=== PATIENT | male | born 1930 | race Two or more races ===

== ENCOUNTER 2017-03-01 17:54 | Inpatient (IN) | payer OTHER ==
[2017-03-01 18:06] VITALS: BMI 29.8
[2017-03-01] MEDS ORDERED: ACETAMINOPHEN 1000 MG/100 ML VIAL (NON FORMULARY) IVPB ONE (18:12)
[2017-03-01] MEDS ORDERED: ACETAMINOPHEN INJECTION 100 ML IVPB ONE (18:23)
[2017-03-01] MEDS ORDERED: LEVOFLOXACIN 750 MG IVPB 150 ML IVPB ONE ×2 (18:29→18:56)
--- NOTE | 2017-03-01 18:39 | PDOC ---
History of Present Illness <Antonio Lucia - Last Filed: 03/01/17 18:38> - General History Source: Patient Exam Limitations: No Limitations - History of Present Illness Initial Comments: 03/01/17 18:39 The patient is an 87 year old female, with significant past medical history of urinary retention, BPH, Afib, hypertension, and hyperlipidemia, who presents today complaining of 2 days of fever, pelvic pain, urinary retention, and dysuria. The patient states that he is unable to urinate over the past 2 days and when he does it is painful. The patient and the home health aid, who accompanied him to the emergency room, are poor historians. They report that these symptoms have occurred over the past 6 years and he has gotten catheterized previously. The patients fever today was 100.3 degrees. Denies hematuria. Denies chest pain, SOB, cough. Denies abdominal pain. Denies chills, nausea, vomiting. Allergies: none reported <Madisyn Bang - Last Filed: 03/01/17 18:39> <Tad Grant - Last Filed: 03/02/17 03:16> <Christina Negron - Last Filed: 03/02/17 04:15> - General Chief Complaint: SIRS, Suspected/Possible Stated Complaint: FEVER Time Seen by Provider: 03/01/17 18:10 Past History - Past Medical History Cardiac Disorders: Yes (atrial fibrillation) Diabetes: Yes HTN: Yes Hypercholesterolemia: Yes - Surgical History Neurologic Surgery: Yes - Psycho/Social/Smoking Cessation Hx Anxiety: No Suicidal Ideation: No Smoking Status: No Smoking History: Never smoked Have you smoked in the past 12 months: No Number of Cigarettes Smoked Daily: 0 Information on smoking cessation initiated: No Hx Alcohol Use: No Drug/Substance Use Hx: No Substance Use Type: None <Antonio Lucia - Last Filed: 03/01/17 18:38> <Madisyn Bang - Last Filed: 03/01/17 18:39> <Tad Grant - Last Filed: 03/02/17 03:16> <Christina Negron - Last Filed: 03/02/17 04:15> - Past Medical History Allergies/Adverse Reactions: Allergies Allergy/AdvReac Type Severity Reaction Status Date / Time No Known Allergies Allergy Verified 03/01/17 18:00 Home Medications: Ambulatory Orders Apixaban [Eliquis] 2.5 mg PO DAILY 03/01/17 Digoxin [Lanoxin -] 0.125 mg PO Q48H 03/01/17 Metformin HCl 500 mg PO DAILY 03/01/17 Metoprolol Tartrate 50 mg PO DAILY 03/01/17 Rosuvastatin [Crestor -] 10 mg PO DAILY 03/01/17 Review of Systems - Review of Systems Able to Perform ROS?: Yes Comments:: 03/01/17 18:40 GENERAL/CONSTITUTIONAL: +fever. No chills. No weakness. HEAD, EYES, EARS, NOSE AND THROAT: No change in vision. No ear pain or discharge. No sore throat. CARDIOVASCULAR: No chest pain or shortness of breath. RESPIRATORY: No cough, wheezing, or hemoptysis. GASTROINTESTINAL: No nausea, vomiting, diarrhea or constipation. GENITOURINARY: +dysuria, retention, pelvic pain. MUSCULOSKELETAL: No joint or muscle swelling or pain. No neck or back pain. SKIN: No rash NEUROLOGIC: No headache, vertigo, loss of consciousness, or change in strength/ sensation. ENDOCRINE: No increased thirst. No abnormal weight change. HEMATOLOGIC/LYMPHATIC: No anemia, easy bleeding, or history of blood clots. ALLERGIC/IMMUNOLOGIC: No hives or skin allergy. <Madisyn Bang - Last Filed: 03/01/17 18:39> *Physical Exam - Vital Signs Last Vital Signs Temp Pulse Resp BP Pulse Ox 100.3 F H 143 H 20 127/80 99 03/01/17 18:01 03/01/17 18:01 03/01/17 18:01 03/01/17 18:01 03/01/17 18:01 <Antonio Lucia - Last Filed: 03/01/17 18:38> - Vital Signs Last Vital Signs Temp Pulse Resp BP Pulse Ox 100.3 F H 143 H 20 127/80 99 03/01/17 18:01 03/01/17 18:01 03/01/17 18:01 03/01/17 18:01 03/01/17 18:01 - Physical Exam Comments: 03/01/17 18:40 GENERAL: Awake, alert, and fully oriented, in no acute distress. +fever HEAD: No signs of trauma EYES: PERRLA, EOMI, sclera anicteric, conjunctiva clear ENT: Auricles normal inspection, hearing grossly normal, nares patent, oropharynx clear without exudates. Moist mucosa NECK: Normal ROM, supple, no lymphadenopathy, JVD, or masses LUNGS: Breath sounds equal, clear to auscultation bilaterally. No wheezes, and no crackles HEART: +irregularly irregular rate and rhythm, normal S1 and S2, no murmurs, rubs or gallops ABDOMEN: +suprapubic tenderness. Soft, normoactive bowel sounds. No guarding, no rebound. No masses EXTREMITIES: Normal range of motion, no edema. No clubbing or cyanosis. No cords , erythema, or tenderness NEUROLOGICAL: Cranial nerves II through XII grossly intact. Normal speech, normal gait SKIN: Warm, Dry, normal turgor, no rashes or lesions noted. <Madisyn Bang - Last Filed: 03/01/17 18:39> - Vital Signs Last Vital Signs Temp Pulse Resp BP Pulse Ox 99.7 F H 119 H 16 120/76 100 03/01/17 20:11 03/01/17 23:21 03/01/17 23:21 03/01/17 23:21 03/01/17 23:21 <Tad Grant - Last Filed: 03/02/17 03:16> - Vital Signs Last Vital Signs Temp Pulse Resp BP Pulse Ox 99.7 F H 116 H 22 119/82 98 03/01/17 20:11 03/01/17 20:39 03/01/17 20:39 03/01/17 20:39 03/01/17 20:50 <Christina Negron - Last Filed: 03/02/17 04:15> ED Treatment Course - RADIOLOGY Radiology Studies Ordered: Category Date Time Status CHEST X-RAY PORTABLE* [RAD] Stat Radiology 03/01/17 18:11 Ordered - Medications Given in the ED: ED Medications Discontinued Medications Generic Name Dose Route Start Last Admin Trade Name Freq PRN Reason Stop Dose Admin Acetaminophen 1,000 mg 03/01/17 18:12 03/01/17 18:31 Ofirmev Injection - IVPB 03/01/17 18:13 1,000 mg ONCE ONE Administration <Antonio Lucia - Last Filed: 03/01/17 18:38> - Medications Given in the ED: ED Medications Discontinued Medications Generic Name Dose Route Start Last Admin Trade Name [place] PRN Reason Stop Dose Admin Acetaminophen 1,000 mg 03/01/17 18:12 03/01/17 18:31 Ofirmev Injection - IVPB 03/01/17 18:13 1,000 mg ONCE ONE Administration <Madisyn Bang - Last Filed: 03/01/17 18:39> - LABORATORY CBC & Chemistry Diagram: 03/01/17 18:25 03/01/17 18:25 - ADDITIONAL ORDERS Additional order review: Laboratory Results 03/01/17 03/01/17 03/01/17 18:40 18:35 18:25 INR PTT (Actin FS) VBG pH 7.36 POC VBG pCO2 44.8 POC VBG pO2 31.6 Mixed VBG HCO3 24.7 Sodium 135 L Potassium 4.5 Chloride 99 Carbon Dioxide 26 Anion Gap 10 BUN 24 H D Creatinine 1.8 H D Creat Clearance w eGFR 36.04 Random Glucose 146 H D Lactic Acid Calcium 8.8 Total Bilirubin 1.1 H D AST 45 H D ALT 47 D Alkaline Phosphatase 487 H D Creatine Kinase 93 Troponin I < 0.02 Total Protein 6.8 Albumin 2.6 L D Urine Color Yellow Urine Appearance Slcloudy Urine pH 5.0 Ur Specific [place] 1.015 Urine Protein 2+ H Urine Glucose (UA) 1+ H Urine Ketones Negative Urine Blood 1+ H Urine Nitrite Negative Urine Bilirubin Negative Urine Urobilinogen 4.0 e.u/dl Ur Leukocyte Esterase Negative Urine RBC 1 Urine WBC 1 Urine Mucus Rare Blood Type Antibody Screen 03/01/17 03/01/17 03/01/17 18:25 18:23 18:21 INR 1.19 H PTT (Actin FS) 35.7 H VBG pH POC VBG pCO2 POC VBG pO2 Mixed VBG HCO3 Sodium Potassium Chloride Carbon Dioxide Anion Gap BUN Creatinine Creat Clearance w eGFR Random Glucose Lactic Acid 1.7 Calcium Total Bilirubin AST ALT Alkaline Phosphatase Creatine Kinase Troponin I Total Protein Albumin Urine Color Urine Appearance Urine pH Ur Specific [place] Urine Protein Urine Glucose (UA) Urine Ketones Urine Blood Urine Nitrite Urine Bilirubin Urine Urobilinogen Ur Leukocyte Esterase Urine RBC Urine WBC Urine Mucus Blood Type O POSITIVE Antibody Screen Negative 03/01/17 18:25 RBC 4.18 D MCV 88.5 MCHC 31.4 L RDW 16.6 H MPV 9.0 Neutrophils % 79.3 Lymphocytes % 11.5 Monocytes % 8.6 Eosinophils % 0.2 Basophils % 0.4 - RADIOLOGY Radiograph Interpretation: 03/02/17 03:17 EXAM: CT abdomen and pelvis without contrast IMAGES: [id number] INDICATION: Lower abdominal pain. Rule out appendicitis DATE OF SERVICE: 2017-03-02 02:05:10.0 COMPARISON: none FINDINGS: Lung bases are clear. The visualized cardiac chambers are normal size and configuration. Normal unenhanced liver, gallbladder , pancreas, spleen, adrenal glands and kidneys. The stomach and abdominal small and large bowel are normal. There is no aortic aneurysm. There is a moderate degree of inflammatory retroperitoneal lymphadenopathy. Neoplasm, such as lymphoma or metastases must be considered. There is a moderate size left inguinal hernia containing portion of bladder without bladder inflammation. The pelvic small and large bowel are normal. There is no evidence of appendicitis, although the appendix is not clearly visualized. The prostate gland is mildly enlarged. No pelvic free fluid is identified. There is no significant pelvic lymphadenopathy. No multiple sclerotic bone lesions, highly suspicious for metastases, possibly prostate cancer. There are no fractures. IMPRESSION: Moderate degree of inflammatory retroperitoneal adenopathy may be neoplastic in nature, possibly metastatic prostate cancer or lymphoma. Multiple blastic bone metastases. Moderate-sized left inguinal hernia containing a portion of bladder. Mild prostate enlargement. THIS DOCUMENT HAS BEEN ELECTRONICALLY SIGNED Arturo Briseno MD 03/02/2017 02:39 EST - Medications Given in the ED: ED Medications Discontinued Medications Generic Name Dose Route Start Last Admin Trade Name Freq PRN Reason Stop Dose Admin Acetaminophen 1,000 mg 03/01/17 18:12 03/01/17 18:31 Ofirmev Injection - IVPB 03/01/17 18:13 1,000 mg ONCE ONE Administration Levofloxacin 150 mls @ 100 mls/hr 03/01/17 18:29 03/01/17 19:00 Levaquin 750 Mg Premixed Ivpb - IVPB 03/01/17 19:58 100 mls/hr ONCE ONE Administration Sodium Chloride 500 mls @ 500 mls/hr 03/01/17 18:41 03/01/17 18:48 Normal Saline - IV 03/01/17 19:40 500 mls/hr ASDIR STA Administration Metoprolol Tartrate 5 mg 03/01/17 20:10 03/01/17 20:19 Lopressor Injection - IVPUSH 03/01/17 20:11 5 mg ONCE ONE Administration Sodium Chloride 500 ml 03/01/17 20:00 03/01/17 20:01 Normal Saline - IV 03/01/17 20:01 500 ml ONCE ONE Administration <Tad Grant - Last Filed: 03/02/17 03:16> - LABORATORY CBC & Chemistry Diagram: 03/01/17 18:25 03/01/17 18:25 - ADDITIONAL ORDERS Additional order review: Laboratory Results 03/01/17 03/01/17 03/01/17 18:40 18:35 18:25 INR PTT (Actin FS) VBG pH 7.36 POC VBG pCO2 44.8 POC VBG pO2 31.6 Mixed VBG HCO3 24.7 Sodium 135 L Potassium 4.5 Chloride 99 Carbon Dioxide 26 Anion Gap 10 BUN 24 H D Creatinine 1.8 H D Creat Clearance w eGFR 36.04 Random Glucose 146 H D Lactic Acid Calcium 8.8 Total Bilirubin 1.1 H D AST 45 H D ALT 47 D Alkaline Phosphatase 487 H D Creatine Kinase 93 Troponin I < 0.02 Total Protein 6.8 Albumin 2.6 L D Urine Color Yellow Urine Appearance Slcloudy Urine pH 5.0 Urine Protein 2+ H Urine Glucose (UA) 1+ H Urine Ketones Negative Urine Blood 1+ H Urine Nitrite Negative Urine Bilirubin Negative Urine Urobilinogen 4.0 e.u/dl Ur Leukocyte Esterase Negative Urine RBC 1 Urine WBC 1 Urine Mucus Rare Blood Type Antibody Screen 03/01/17 03/01/17 03/01/17 18:25 18:23 18:21 INR 1.19 H PTT (Actin FS) 35.7 H VBG pH POC VBG pCO2 POC VBG pO2 Mixed VBG HCO3 Sodium Potassium Chloride Carbon Dioxide Anion Gap BUN Creatinine Creat Clearance w eGFR Random Glucose Lactic Acid 1.7 Calcium Total Bilirubin AST ALT Alkaline Phosphatase Creatine Kinase Troponin I Total Protein Albumin Urine Color Urine Appearance Urine pH Urine Protein Urine Glucose (UA) Urine Ketones Urine Blood Urine Nitrite Urine Bilirubin Urine Urobilinogen Ur Leukocyte Esterase Urine RBC Urine WBC Urine Mucus Blood Type O POSITIVE Antibody Screen Negative 03/01/17 18:25 RBC 4.18 D MCV 88.5 MCHC 31.4 L RDW 16.6 H MPV 9.0 Neutrophils % 79.3 Lymphocytes % 11.5 Monocytes % 8.6 Eosinophils % 0.2 Basophils % 0.4 - RADIOLOGY Radiology Studies Ordered: Category Date Time Status ABDOMEN & PELVIS CT W/O CONTR [CT] Stat CT Scan 03/01/17 21:31 Ordered - Medications Given in the ED: ED Medications Discontinued Medications Generic Name Dose Route Start Last Admin Trade Name Merced PRN Reason Stop Dose Admin Acetaminophen 1,000 mg 03/01/17 18:12 03/01/17 18:31 Ofirmev Injection - IVPB 03/01/17 18:13 1,000 mg ONCE ONE Administration Levofloxacin 150 mls @ 100 mls/hr 03/01/17 18:29 03/01/17 19:00 Levaquin 750 Mg Premixed Ivpb - IVPB 03/01/17 19:58 100 mls/hr ONCE ONE Administration Sodium Chloride 500 mls @ 500 mls/hr 03/01/17 18:41 03/01/17 18:48 Normal Saline - IV 03/01/17 19:40 500 mls/hr ASDIR STA Administration Metoprolol Tartrate 5 mg 03/01/17 20:10 03/01/17 20:19 Lopressor Injection - IVPUSH 03/01/17 20:11 5 mg ONCE ONE Administration Sodium Chloride 500 ml 03/01/17 20:00 03/01/17 20:01 Normal Saline - IV 03/01/17 20:01 500 ml ONCE ONE Administration <Christina Negorn - Last Filed: 03/02/17 04:15> Medical Decision Making - Medical Decision Making 03/01/17 21:33 assumed care of pt at 7 pm. brifely 87 yo male with ho untreated prostate CA ( diagnosed 5 yrs ago)here with fever today. no cough no sob. c/o lower abd pain. has difficulty emptying bladder due to enlarged prostate, and prostate ca. pt reassessed. has been given tylenol, ivf 1 L total. HR still elevated 140's. given iv metoprolol 5 mg . hr improved to 117. lungs clear heart tachy irregular. abd with mild suprapubic ttp. plan : given iv abx for presumed UTI. urine mildly positive , will ct r/o other causes of pain and fever such as diverticulitis, appendicit. no iv contrast as creatinine 1.8. will admit for iv abx, afib with RVR. alla pt pcp dr. [place], oncologist Dr Grubbs, urologist Dr Cummings. magali Tomlinson cell phone [phone] <Christina Negron - Last Filed: 03/02/17 04:15> *DC/Admit/Observation/Transfer - Attestations Physician Attestion: 03/01/17 18:38 I, Dr. Antonio Lucia, attest that this document has been prepared under my direction and personally reviewed by me in its entirety. I further attest, that it accurately reflects all work, treatment, procedures and medical decision -making performed by me. <Antonio Lucia - Last Filed: 03/01/17 18:38> - Attestations Scribe Attestion: 03/01/17 18:40 Documentation prepared by KUNAL Archer, acting as medical surgery nurse for Antonio Lucia DO. <Madisyn Bang - Last Filed: 03/01/17 18:39> <Tad Grant - Last Filed: 03/02/17 03:16> - Discharge Dispostion Admit: Yes <Christina Negron - Last Filed: 03/02/17 04:15> Diagnosis at time of Disposition: Urinary tract infection, Atrial fibrillation with rapid ventricular response - Referrals Referrals: STAFF,NOT ON [Primary Care Provider] -
[2017-03-01] MEDS ORDERED: SODIUM CHLORIDE 500 ML IV STA (18:41)
[2017-03-01 18:46] LABS: VENOUS PH 7.36 (7.32-7.42)
[2017-03-01 18:47] LABS: VENOUS BLOOD GAS HCO3 24.7 meq/L (19-25)
[2017-03-01 18:47] LABS: BASOPHIL 0.4 % (0-2.0); EOSINOPHIL 0.2 % (0-4.5); MCH 27.8 pg (25.7-33.7); MCHC 31.4 g/dl (32.0-35.9); MEAN CELL VOLUME 88.5 fl (80-96); NEUTROPHILS 79.3 % (42.8-82.8); PLATELET COUNT 305 K/MM3 (134-434); RDW 16.6 % (11.9-15.9); WHITE BLOOD COUNT 11.7 K/mm3 (4.0-10.0)
[2017-03-01 19:10] LABS: ALBUMIN 2.6 g/dl (3.4-5.0); ANION GAP 10 (8-16); CALCIUM 8.8 mg/dL (8.5-10.1); CO2 26 mmol/L (21-32); CREATININE 1.8 mg/dL (0.7-1.3); GLUCOSE,RANDOM 146 mg/dL (74-106); SGOT/AST 45 U/L (15-37)
[2017-03-01 19:13] LABS: ALK PHOS 487 U/L (45-117); BILIRUBIN,TOTAL 1.1 mg/dL (0.2-1.0); SGPT/ALT 47 U/L (12-78); TOT PROT 6.8 g/dl (6.4-8.2); TROPONIN I < 0.02 ng/ml (0.00-0.05)
[2017-03-01 19:16] LABS: URINE APPEARANCE SLCLOUDY; URINE BILIRUBIN NEGATIVE (NEGATIVE); URINE COLOR YELLOW; URINE GLUCOSE (UA) 1+ (NEGATIVE); URINE KETONE NEGATIVE (NEGATIVE); URINE LEUK ESTERASE NEGATIVE (NEGATIVE); URINE NITRITE NEGATIVE (NEGATIVE); URINE UROBILINOGEN 4.0 E.U/dl E.U./dl (0.2-1.0)
[2017-03-01 19:22] LABS: INR 1.19 (0.82-1.09); PROTHROMBIN TIME (PATIENT) 13.1 SEC (9.98-11.88)
[2017-03-01 19:24] LABS: ACTIVATED PTT 35.7 SECONDS (26.9-34.4)
[2017-03-01] MEDS ORDERED: SODIUM CHLORIDE 0.9% 1000 ML INFUS.BAG IV ONE (20:00)
[2017-03-01 20:05] LABS: URINE BLOOD 1+ (NEGATIVE); URINE PROTEIN 2+ (NEGATIVE)
[2017-03-01] MEDS ORDERED: METOPROLOL TARTRATE 5 MG/5 ML VIAL IVPUSH ONE (20:10)
[2017-03-01] MEDS ORDERED: METOPROLOL TARTRATE 5 MG/5 ML VIAL ONE (20:14)
[2017-03-01 20:29] LABS: URINE MUCUS RARE; URINE RBC 1 /hpf (0-3); URINE WBC 1 /hpf (3-5)
[2017-03-02] MEDS ORDERED: METOPROLOL TARTRATE 5 MG/5 ML VIAL IVPUSH ONE ×4 (03:59→22:10)
[2017-03-02] MEDS ORDERED: METOPROLOL TARTRATE 5 MG/5 ML VIAL ONE ×4 (04:02→22:07)
--- NOTE | 2017-03-02 05:03 | HP ---
CHIEF COMPLAINT: Fever, Pelvic Pain PCP: Dr. Cuba Oncologist: Dr. Grubbs Urologist: Dr. Cummings Spouse: Bushra [phone] (cell) HISTORY OF PRESENT ILLNESS: This is a 87 y/o male with a past medical history of Urinary Retention, BPH, Untreated Prostate Ca (diagnosed 5 yrs ago), HTN, HLD, DM. Who presents to the ED with fever, pelvic pain x 2 days. Patient is [place] and a poor historian, limited HPI. Patient denies cough, chills, dizziness, CP, N/V/D, constipation, melena, hematochezia, hematuria. ER course was notable for: (1) EKG- Afib RVR 152, Metoprolol IV x2 given rate now 110s-120's (2) T Max 100.3 (3) Bun 24, Cr 1.8 (4) UA- Cloudy, + 1 blood, +2 protein, +1 glucose Recent Travel: None PAST MEDICAL HISTORY: See HPI PAST SURGICAL HISTORY: Cystoscopy Social History: Smoking: Never Alcohol: None Drugs: None Family History: Allergies No Known Allergies Allergy (Verified 03/01/17 18:00) HOME MEDICATIONS: Home Medications Medication Instructions Recorded Apixaban [Eliquis] 2.5 mg PO DAILY 03/01/17 Digoxin [Lanoxin -] 0.125 mg PO Q48H 03/01/17 Metformin HCl 500 mg PO DAILY 03/01/17 Metoprolol Tartrate 50 mg PO DAILY 03/01/17 Rosuvastatin [Crestor -] 10 mg PO DAILY 03/01/17 REVIEW OF SYSTEMS CONSTITUTIONAL: Absent: fever, chills, diaphoresis, generalized weakness, malaise, loss of appetite, weight change HEENT: Absent: rhinorrhea, nasal congestion, throat pain, throat swelling, difficulty swallowing, mouth swelling, ear pain, eye pain, visual changes CARDIOVASCULAR: palpitations, irregular heart rate, Absent: chest pain, syncope, lightheadedness, peripheral edema RESPIRATORY: Absent: cough, shortness of breath, dyspnea with exertion, orthopnea, wheezing, stridor, hemoptysis GASTROINTESTINAL: abdominal pain Absent: abdominal distension, nausea, vomiting, diarrhea, constipation, melena, hematochezia GENITOURINARY: Absent: dysuria, frequency, urgency, hesitancy, hematuria, flank pain, genital pain MUSCULOSKELETAL: Absent: myalgia, arthralgia, joint swelling, back pain, neck pain SKIN: Absent: rash, itching, pallor HEMATOLOGIC/IMMUNOLOGIC: Absent: easy bleeding, easy bruising, lymphadenopathy, frequent infections ENDOCRINE: Absent: unexplained weight gain, unexplained weight loss, heat intolerance, cold intolerance NEUROLOGIC: Absent: headache, focal weakness or paresthesias, dizziness, unsteady gait, seizure, mental status changes, bladder or bowel incontinence PSYCHIATRIC: Absent: anxiety, depression, suicidal or homicidal ideation, hallucinations. PHYSICAL EXAMINATION Vital Signs - 24 hr 03/02/17 04:32 Temperature 99.7 F H Pulse Rate [ 101 H Apical] Blood Pressure 110/60 [Right Arm] GENERAL: Awake, alert, and fully oriented, in no acute distress. HEAD: Normal with no signs of trauma. EYES: Pupils equal, round and reactive to light, extraocular movements intact, sclera anicteric, conjunctiva clear. No lid lag. EARS, NOSE, THROAT: Ears normal, nares patent, oropharynx clear without exudates. Moist mucous membranes. NECK: Normal range of motion, supple without lymphadenopathy, JVD, or masses. LUNGS: Breath sounds equal, clear to auscultation bilaterally. No wheezes, and no crackles. No accessory muscle use. HEART: Irregular rate and rhythm, normal S1 and S2 without murmur, rub or gallop. ABDOMEN: LLQ tenderness Soft, not distended, normoactive bowel sounds, no guarding, no rebound, no masses. No hepatomegaly or splenomegaly. MUSCULOSKELETAL: Normal range of motion at all joints. No bony deformities or tenderness. No CVA tenderness. UPPER EXTREMITIES: 2+ pulses, warm, well-perfused. No cyanosis. No clubbing. No peripheral edema. LOWER EXTREMITIES: 2+ pulses, warm, well-perfused. No calf tenderness. No peripheral edema. NEUROLOGICAL: Cranial nerves II-XII intact. Normal speech. Gait not observed, ( ambulates with chair/walker). PSYCHIATRIC: Cooperative. Good eye contact. Appropriate mood and affect. SKIN: Warm, dry, normal turgor, no rashes or lesions noted, normal capillary refill. Laboratory Results - last 24 hr 03/01/17 03/01/17 03/01/17 18:21 18:23 18:25 WBC 11.7 H D RBC 4.18 D Hgb 11.6 L D Hct 37.0 D MCV 88.5 MCHC 31.4 L RDW 16.6 H Plt Count 305 D MPV 9.0 Neutrophils % 79.3 Lymphocytes % 11.5 Monocytes % 8.6 Eosinophils % 0.2 Basophils % 0.4 INR PTT (Actin FS) VBG pH POC VBG pCO2 POC VBG pO2 Mixed VBG HCO3 Sodium Potassium Chloride Carbon Dioxide Anion Gap BUN Creatinine Creat Clearance w eGFR Random Glucose Lactic Acid 1.7 Calcium Total Bilirubin AST ALT Alkaline Phosphatase Creatine Kinase Troponin I Total Protein Albumin Urine Color Urine Appearance Urine pH Ur Specific [place] Urine Protein Urine Glucose (UA) Urine Ketones Urine Blood Urine Nitrite Urine Bilirubin Urine Urobilinogen Ur Leukocyte Esterase Urine RBC Urine WBC Urine Mucus Blood Type O POSITIVE Antibody Screen Negative 03/01/17 03/01/17 03/01/17 18:25 18:25 18:35 WBC RBC Hgb Hct MCV MCHC RDW Plt Count MPV Neutrophils % Lymphocytes % Monocytes % Eosinophils % Basophils % INR 1.19 H PTT (Actin FS) 35.7 H VBG pH 7.36 POC VBG pCO2 44.8 POC VBG pO2 31.6 Mixed VBG HCO3 24.7 Sodium 135 L Potassium 4.5 Chloride 99 Carbon Dioxide 26 Anion Gap 10 BUN 24 H D Creatinine 1.8 H D Creat Clearance w eGFR 36.04 Random Glucose 146 H D Lactic Acid Calcium 8.8 Total Bilirubin 1.1 H D AST 45 H D ALT 47 D Alkaline Phosphatase 487 H D Creatine Kinase 93 Troponin I < 0.02 Total Protein 6.8 Albumin 2.6 L D Urine Color Urine Appearance Urine pH Ur Specific [place] Urine Protein Urine Glucose (UA) Urine Ketones Urine Blood Urine Nitrite Urine Bilirubin Urine Urobilinogen Ur Leukocyte Esterase Urine RBC Urine WBC Urine Mucus Blood Type Antibody Screen 03/01/17 18:40 WBC RBC Hgb Hct MCV MCHC RDW Plt Count MPV Neutrophils % Lymphocytes % Monocytes % Eosinophils % Basophils % INR PTT (Actin FS) VBG pH POC VBG pCO2 POC VBG pO2 Mixed VBG HCO3 Sodium Potassium Chloride Carbon Dioxide Anion Gap BUN Creatinine Creat Clearance w eGFR Random Glucose Lactic Acid Calcium Total Bilirubin AST ALT Alkaline Phosphatase Creatine Kinase Troponin I Total Protein Albumin Urine Color Yellow Urine Appearance Slcloudy Urine pH 5.0 Ur Specific [place] 1.015 Urine Protein 2+ H Urine Glucose (UA) 1+ H Urine Ketones Negative Urine Blood 1+ H Urine Nitrite Negative Urine Bilirubin Negative Urine Urobilinogen 4.0 e.u/dl Ur Leukocyte Esterase Negative Urine RBC 1 Urine WBC 1 Urine Mucus Rare Blood Type Antibody Screen RADIOLOGY Radiograph Interpretation: 03/02/17 03:17 EXAM: CT abdomen and pelvis without contrast IMAGES: [id number] INDICATION: Lower abdominal pain. Rule out appendicitis DATE OF SERVICE: 2017-03-02 02:05:10.0 COMPARISON: none FINDINGS: Lung bases are clear. The visualized cardiac chambers are normal size and configuration. Normal unenhanced liver, gallbladder , pancreas, spleen, adrenal glands and kidneys. The stomach and abdominal small and large bowel are normal. There is no aortic aneurysm. There is a moderate degree of inflammatory retroperitoneal lymphadenopathy. Neoplasm, such as lymphoma or metastases must be considered. There is a moderate size left inguinal hernia containing portion of bladder without bladder inflammation. The pelvic small and large bowel are normal. There is no evidence of appendicitis, although the appendix is not clearly visualized. The prostate gland is mildly enlarged. No pelvic free fluid is identified. There is no significant pelvic lymphadenopathy. No multiple sclerotic bone lesions, highly suspicious for metastases, possibly prostate cancer. There are no fractures. IMPRESSION: Moderate degree of inflammatory retroperitoneal adenopathy may be neoplastic in nature, possibly metastatic prostate cancer or lymphoma. Multiple blastic bone metastases. Moderate-sized left inguinal hernia containing a portion of bladder. Mild prostate enlargement. THIS DOCUMENT HAS BEEN ELECTRONICALLY SIGNED Arturo Briseno MD 03/02/2017 02:39 EST ASSESSMENT/PLAN: This is a 87 y/o male with a PMHx of: Urinary Retention, BPH, Untreated Prostate Ca (diagnosed 5 yrs ago), Afib (on Eliquis), HTN, HLD, DM, [place]. Admitted to Telemetry with Afib with RVR, UTI for further evaluation of their emergent condition. Plan: 1. Afib with RVR - hx Afib ?complaint with meds - Tele monitoring - [id number] Score 4 - Appreciate Cardiology Consult - Metoprolol 5mg IV x2 given in ED rate improved 110s-120s - EKG- Afib with RVR, ST & T wave abnormality, consider inferior ischemia - Continue Metoprolol, Eliquis, Digoxin - Digoxin level in am - Serial Enzymes - Echo 2. UTI - UA- cloudy, +1 Blood, +2 Protein, +1 glucose, some WBCs - Urine Culture-pending - Levaquin given in ED - Will start Ceftriaxone - Monitor vitals 3. Pelvic Pain - Likely secondary to UTI vs Prostate Tumor - CTAP- see above - Patient has hx untreated prostate Ca x 5 yrs - f/u with oncologist/urologist upon d/c for further evaluation and management 4. Hypertension - Monitor BP - Continue Metoprolol - Monitor renal function 5. Hyperlipidemia - Continue Crestor - Lipid Panel in am 6. Diabetes Mellitus - BGMs - ISS - Hold Metformin 2/2 renal insufficiency - HgBA1C 7. BPH//Urinary Retention. - stable - Patient denies trouble voiding or decreased urine flow - Currently not on medication - f/u with Urologist upon d/c for continued management 8. FEN - Patient tolerates PO Fluids - Replete lytes prn - Low Na, Diabetic Diet 9. DVT Prophylaxis - OOB - SCDs - Continue Eliquis Code Status: Full Code Dispo: Continue Inpatient Care Problem List - Problem (1) Atrial fibrillation with RVR Code(s): I48.91 - UNSPECIFIED ATRIAL FIBRILLATION (2) UTI (urinary tract infection) Code(s): N39.0 - URINARY TRACT INFECTION, SITE NOT SPECIFIED Visit type - Emergency Visit Emergency Visit: Yes ED Registration Date: 03/02/17 Care time: The patient presented to the Emergency Department on the above date and was hospitalized for further evaluation of their emergent condition. - New Patient This patient is new to me today: Yes Date on this admission: 03/02/17 - Critical Care Critical Care patient: No
[2017-03-02] MEDS ORDERED: ACETAMINOPHEN 325 MG TABLET (FP) PO PRN (06:04)
[2017-03-02] MEDS ORDERED: METOPROLOL SUCCINATE 50 MG TAB.SR.24H (FP) ONE (09:35)
[2017-03-02 09:41] LABS: BASOPHIL 0.8 % (0-2.0); EOSINOPHIL 0.3 % (0-4.5); MCH 28.9 pg (25.7-33.7); MEAN CELL VOLUME 87.7 fl (80-96); MEAN PLT VOLUME 8.5 fl (7.5-11.1); NEUTROPHILS 83.9 % (42.8-82.8); PLATELET COUNT 233 K/MM3 (134-434); RDW 16.2 % (11.9-15.9); WHITE BLOOD COUNT 10.2 K/mm3 (4.0-10.0)
[2017-03-02] MEDS: CEFTRIAXONE 50 ML IVPB SCH (10:00)
[2017-03-02] MEDS: METOPROLOL TARTRATE 50 MG TABLET (FP) PO SCH (10:00)
[2017-03-02 10:06] LABS: ANION GAP 9 (8-16); CALCIUM 8.6 mg/dL (8.5-10.1); CHOLESTEROL 93 mg/dL (50-200); CO2 24 mmol/L (21-32); CREATININE 1.4 mg/dL (0.7-1.3); GLUCOSE,RANDOM 190 mg/dL (74-106); LDL CHOLESTEROL (ONLY SJRH) 54 mg/dL (5-100); MAGNESIUM 2.2 mg/dL (1.8-2.4); PHOSPHOROUS 2.5 mg/dL (2.5-4.9)
[2017-03-02 10:17] LABS: DIGOXIN LEVEL 0.4216 ng/ml (0.8-2.0); TROPONIN I < 0.02 ng/ml (0.00-0.05)
--- NOTE | 2017-03-02 10:21 | PN ---
Physical Exam: SUBJECTIVE: Patient seen and examined in the ER. Pt denies all c/o at present. OBJECTIVE: Vital Signs 3 Period Temp Pulse Resp BP Sys/Ralph Pulse Ox Last 24 Hr 99.0 F-99.7 F 101-125 16-16 110-122/60-82 100-100 GENERAL: The patient is awake, alert, and fully oriented, in no acute distress. + [place] HEAD: Normal with no signs of trauma. EYES: PERRL, extraocular movements intact, sclera anicteric, conjunctiva clear. No ptosis. ENT: Ears normal, nares patent, oropharynx clear without exudates, moist mucous membranes. NECK: Trachea midline, full range of motion, supple. LUNGS: Breath sounds equal, clear to auscultation bilaterally, no wheezes, no crackles, no accessory muscle use. HEART: Regular rate and rhythm, S1, S2 without murmur, rub or gallop. ABDOMEN: Soft, nontender, nondistended, normoactive bowel sounds, no guarding, no rebound, no hepatosplenomegaly, no masses. EXTREMITIES: 2+ pulses, warm, well-perfused, no edema. NEUROLOGICAL: Cranial nerves II through XII grossly intact. Normal speech, gait not observed. PSYCH: Normal mood, normal affect. SKIN: Warm, dry, normal turgor, no rashes or lesions noted Laboratory Results - last 24 hr 3 03/02/17 03/02/17 03/02/17 09:20 09:20 09:20 WBC 10.2 H RBC 3.74 L Hgb 10.8 L Hct 32.8 L MCV 87.7 MCHC 33.0 RDW 16.2 H Plt Count 233 D MPV 8.5 Neutrophils % 83.9 H Lymphocytes % 8.6 D Monocytes % 6.4 Eosinophils % 0.3 Basophils % 0.8 Sodium 137 Potassium 4.7 Chloride 104 Carbon Dioxide 24 Anion Gap 9 BUN 20 H Creatinine 1.4 H D Random Glucose 190 H D Hemoglobin A1c % 8.3 H Calcium 8.6 Phosphorus 2.5 Magnesium 2.2 Creatine Kinase 79 Troponin I < 0.02 Triglycerides 69 Cholesterol 93 Total LDL Cholesterol 54 HDL Cholesterol 34 L Digoxin 0.4216 L Active Medications 3 Generic Name Dose Route Start Last Admin Trade Name Freq PRN Reason Stop Dose Admin Acetaminophen 650 mg 03/02/17 06:04 Tylenol - PO Q6H PRN FEVER OR PAIN Apixaban 2.5 mg 03/02/17 10:00 Eliquis - PO BID [facility] Digoxin 0.125 mg 03/02/17 10:00 Lanoxin - PO Q48H [facility] Ceftriaxone Sodium 50 mls @ 100 mls/hr 03/02/17 10:00 Rocephin 1gm Ivpb (Pre-Docked) IVPB DAILY [facility] Metoprolol Tartrate 50 mg 03/02/17 10:00 Lopressor - PO DAILY [facility] Rosuvastatin Calcium 10 mg 03/02/17 10:00 Crestor - PO DAILY [facility] Radiograph Interpretation: 03/02/17 03:17 EXAM: CT abdomen and pelvis without contrast IMAGES: [id number] INDICATION: Lower abdominal pain. Rule out appendicitis DATE OF SERVICE: 2017-03-02 02:05:10.0 COMPARISON: none FINDINGS: Lung bases are clear. The visualized cardiac chambers are normal size and configuration. Normal unenhanced liver, gallbladder , pancreas, spleen, adrenal glands and kidneys. The stomach and abdominal small and large bowel are normal. There is no aortic aneurysm. There is a moderate degree of inflammatory retroperitoneal lymphadenopathy. Neoplasm, such as lymphoma or metastases must be considered. There is a moderate size left inguinal hernia containing portion of bladder without bladder inflammation. The pelvic small and large bowel are normal. There is no evidence of appendicitis, although the appendix is not clearly visualized. The prostate gland is mildly enlarged. No pelvic free fluid is identified. There is no significant pelvic lymphadenopathy. No multiple sclerotic bone lesions, highly suspicious for metastases, possibly prostate cancer. There are no fractures. IMPRESSION: Moderate degree of inflammatory retroperitoneal adenopathy may be neoplastic in nature, possibly metastatic prostate cancer or lymphoma. Multiple blastic bone metastases. Moderate-sized left inguinal hernia containing a portion of bladder. Mild prostate enlargement. THIS DOCUMENT HAS BEEN ELECTRONICALLY SIGNED Arturo Briseno MD 03/02/2017 02:39 EST ASSESSMENT/PLAN: This is a 87 y/o male with a PMHx of: Urinary Retention, BPH, Untreated Prostate Ca (diagnosed 5 yrs ago), Afib (on Eliquis), HTN, HLD, DM, [place]. Admitted to Telemetry with Afib with RVR, UTI for further evaluation of their emergent condition. Spoke with pt's daughter Bushra Ward ([phone]) who requests that the patient is discharged. Plan: 1. Afib with RVR - Tele monitoring - [id number] Score 4 - Case d/w cardiology [place] - Metoprolol 5mg IV x2 given in ED rate improved 110s-120s - EKG- Afib with RVR, ST & T wave abnormality, consider inferior ischemia - Continue Metoprolol, Eliquis, Digoxin - Lopressor 5mg IVP for breakthrough tachycardia - Digoxin level subtherapeutic - Serial Enzymes - Echo - attempted to contact pt [employer]- Prem in the [place] 2. UTI - UA- cloudy, +1 Blood, +2 Protein, +1 glucose, some WBCs - Urine Cx- pending - Levaquin given in ED - Ceftriaxone 1g daily - Monitor vitals 3. Pelvic Pain- controlled presently - Likely secondary to UTI vs Prostate Tumor - CTAP- see above - f/u with Romie oncologist/urologist upon d/c for further evaluation and management 4. Hypertension - Monitor BP - Continue Metoprolol - Monitor renal function 5. Hyperlipidemia - Continue Crestor - Lipid Panel in am 6. DM - BGMs - ISS - Hold Metformin 2/2 renal insufficiency - HgBA1C 7. BPH/Urinary Retention - stable - Patient denies trouble voiding or decreased urine flow - Currently not on medication - f/u with Urologist upon d/c for continued management 8. FEN - Patient tolerates PO Fluids - Replete lytes prn - Low Na, Diabetic Diet 9. DVT Prophylaxis - OOB - SCDs - Continue Eliquis Code Status: Full Code Dispo: Continue Inpatient Care Visit type - Emergency Visit Emergency Visit: Yes ED Registration Date: 03/02/17 Care time: The patient presented to the Emergency Department on the above date and was hospitalized for further evaluation of their emergent condition. - New Patient This patient is new to me today: Yes Date on this admission: 03/05/17 - Critical Care Critical Care patient: No
[2017-03-02] MEDS ORDERED: DIGOXIN 0.125 MG TABLET (FP) ONE (12:57)
[2017-03-02] MEDS ORDERED: CEFTRIAXONE 50 ML ONE (12:57)
[2017-03-02] MEDS: DIGOXIN 0.125 MG TABLET (FP) PO SCH (13:05)
[2017-03-02 13:29] LABS: TROPONIN I < 0.02 ng/ml (0.00-0.05)
[2017-03-02] MEDS: ROSUVASTATIN CA 10 MG TABLET (FP) PO SCH (15:00)
[2017-03-02] MEDS: APIXABAN 2.5 MG TABLET PO SCH ×2 (15:00→21:17)
[2017-03-03] MEDS ORDERED: METOPROLOL TARTRATE 5 MG/5 ML VIAL ONE (01:04)
[2017-03-03] MEDS ORDERED: METOPROLOL TARTRATE 5 MG/5 ML VIAL IVPUSH ONE (01:06)
[2017-03-03 07:39] LABS: BASOPHIL 0.4 % (0-2.0); EOSINOPHIL 0.5 % (0-4.5); MCH 28.7 pg (25.7-33.7); MCHC 32.8 g/dl (32.0-35.9); MEAN CELL VOLUME 87.6 fl (80-96); MEAN PLT VOLUME 8.6 fl (7.5-11.1); NEUTROPHILS 78.6 % (42.8-82.8); PLATELET COUNT 271 K/MM3 (134-434); RDW 16.3 % (11.9-15.9); WHITE BLOOD COUNT 8.2 K/mm3 (4.0-10.0)
[2017-03-03 08:10] LABS: ANION GAP 11 (8-16); CALCIUM 8.6 mg/dL (8.5-10.1); CO2 25 mmol/L (21-32); CREATININE 1.5 mg/dL (0.7-1.3); GLUCOSE,RANDOM 155 mg/dL (74-106)
[2017-03-03] MEDS: METOPROLOL TARTRATE 50 MG TABLET (FP) PO SCH (08:40)
[2017-03-03] MEDS: APIXABAN 2.5 MG TABLET PO SCH ×2 (08:40→22:25)
[2017-03-03] MEDS: DIGOXIN 0.125 MG TABLET (FP) PO SCH (08:40)
[2017-03-03] MEDS ORDERED: dilTIAZem HCL 50 MG/10 ML - 10 ML VIAL IVPUSH ONE (08:45)
--- NOTE | 2017-03-03 09:23 | CON.CARD ---
Consult Consult Specialty:: cardiology Reason for Consultation:: palpitations; AF - History of Present Illness History of Present Illness: The patient is an 87 year old male (garry C[place]), with significant past medical history of urinary retention, BPH, Afib, hypertension, chronic lower abdominal pain (for at least the past year), anxiety,and hyperlipidemia, who presents today complaining of 2 days of fever, pelvic pain, urinary retention, and dysuria. The patient states that he is unable to urinate over the past 2 days and when he does it is painful. The patient and the home health aid, who accompanied him to the emergency room, are poor historians. They report that these symptoms have occurred over the past 6 years and he has gotten catheterized previously. The patients fever today was 100.3 degrees. Denies hematuria. Denies chest pain, SOB, cough. Denies abdominal pain. Denies chills, nausea, vomiting. Allergies: none reported - History Source History Provided By: Patient, Medical Record Limitations to Obtaining History: Poor Historian - Past Medical History Cardio/Vascular: Yes: AFIB, HTN Pulmonary: No: Asthma Gastrointestinal: Yes: GERD - Alcohol/Substance Use Hx Alcohol Use: No - Smoking History Smoking history: Never smoked Have you smoked in the past 12 months: No Aproximately how many cigarettes per day: 0 Home Medications - Allergies Allergies/Adverse Reactions: Allergies Allergy/AdvReac Type Severity Reaction Status Date / Time No Known Allergies Allergy Verified 03/01/17 18:00 - Home Medications Home Medications: Ambulatory Orders Apixaban [Eliquis] 2.5 mg PO DAILY 03/01/17 Digoxin [Lanoxin -] 0.125 mg PO Q48H 03/01/17 Metformin HCl 500 mg PO DAILY 03/01/17 Metoprolol Tartrate 50 mg PO DAILY 03/01/17 Rosuvastatin [Crestor -] 10 mg PO DAILY 03/01/17 Family Disease History - Family Disease History Family History: Denies Review of Systems - Review of Systems Constitutional: reports: No Symptoms Eyes: reports: No Symptoms HENT: reports: No Symptoms Neck: reports: No Symptoms Cardiovascular: reports: Palpitations, Shortness of Breath Respiratory: reports: SOB on Exertion Gastrointestinal: reports: Abdominal Pain Genitourinary: reports: No Symptoms Breasts: reports: No Symptoms Reported Integumentary: reports: No Symptoms Neurological: reports: No Symptoms Endocrine: reports: No Symptoms Hematology/Lymphatic: reports: No Symptoms Psychiatric: reports: Anxiety - Risk Factors Known Risk Factors: Yes: Age, Gender, Hypertension, Physical Inactivity Vital Signs: Vital Signs Temperature 98.7 F 03/03/17 08:46 Pulse Rate 123 H 03/03/17 08:46 Respiratory Rate 18 03/03/17 08:46 Blood Pressure 121/67 03/03/17 08:46 O2 Sat by Pulse Oximetry (%) 100 03/02/17 22:00 Constitutional: Yes: Anxious Eyes: Yes: WNL HENT: Yes: WNL Neck: Yes: WNL Respiratory: Yes: Diminished (left base) Gastrointestinal: Yes: Soft. No: Tenderness Renal/: No: Anuria JVD: No Carotid Bruit: No Heart Sounds: Yes: S1 (varies in intensity) Murmur: Yes: Systolic Murmur, Grade 1 Musculoskeletal: Yes: Muscle Weakness Extremities: Yes: Cool Edema: No Peripheral Pulses WNL: No Peripheral Pulses: 1+ Left Doralis Pedis, 1+ Right Dorsalis Pedis Neurological: Yes: Alert Psychiatric: Yes: Other (anxiety) - Other Data Labs, Other Data: CBC, BMP 03/03/17 05:35 03/03/17 05:35 INR, PTT INR 1.19 (0.82-1.09) H 03/01/17 18:25 Troponin, BNP 03/02/17 03/02/17 09:20 12:20 Troponin I < 0.02 < 0.02 Troponin, BNP 03/02/17 03/02/17 09:20 12:20 Troponin I < 0.02 < 0.02 Imaging - Results Chest X-ray: Image Reviewed (cardiomegaly; mild congestion) EKG: Image Reviewed (AF with RVR) Problem List - Problems (1) Atrial fibrillation with RVR Assessment/Plan: On metoprolol; change to long-acting metoprolol succinate, and increase as needed for HR control. Pt had been on digoxin (level 0.4); will try to avoid continuing because of potential adverse cardiac effects; if a 2nd AV blccker is needed, will use diltiazem, unless LVEF is markedly reduced (await ECHO). Apixaban for anticoagulation. Avoid excessive dehydration (abnormal BUN/Cr). Maintatin electrolytes. TSH. Code(s): I48.91 - UNSPECIFIED ATRIAL FIBRILLATION (2) UTI (urinary tract infection) Code(s): N39.0 - URINARY TRACT INFECTION, SITE NOT SPECIFIED (3) HTN (hypertension) Code(s): I10 - ESSENTIAL (PRIMARY) HYPERTENSION (4) Cardiomegaly Assessment/Plan: f/u ECHO for LVEF, chamber sizes, valve status. Code(s): I51.7 - CARDIOMEGALY
--- NOTE | 2017-03-03 09:31 | PN ---
Physical Exam: SUBJECTIVE: Patient seen and examined at bedside. OOB to chair with assistance. OBJECTIVE: Vital Signs Period Temp Pulse Resp BP Sys/Ralph Pulse Ox Last 24 Hr 98.2 F-100.1 F 109-144 18-20 113-136/57-85 97-100 GENERAL: The patient is awake, alert, and fully oriented, in no acute distress. Hard of hearing. EYES: PERRL, extraocular movements intact, sclera anicteric, conjunctiva clear. No ptosis. LUNGS: Breath sounds equal, clear to auscultation bilaterally, no wheezes, no crackles, no accessory muscle use. HEART: Irregular rate and rhythm, S1, S2 without murmur, rub or gallop. ABDOMEN: Soft, nontender, nondistended, normoactive bowel sounds, no guarding, no rebound, no hepatosplenomegaly, no masses. Palpable firm inguinal lymph nodes bilaterally. No CVAT. RECTAL: Firm prostate. No palpable nodules. Brown stool in vault. No hemorrhoids palpated. EXTREMITIES: 2+ pulses, warm, well-perfused, no edema. NEUROLOGICAL: Cranial nerves II through XII grossly intact. Normal speech, gait steady with walker. Laboratory Results - last 24 hr 3 03/02/17 03/02/17 03/02/17 09:20 09:20 09:20 WBC 10.2 H RBC 3.74 L Hgb 10.8 L Hct 32.8 L MCV 87.7 MCHC 33.0 RDW 16.2 H Plt Count 233 D MPV 8.5 Neutrophils % 83.9 H Lymphocytes % 8.6 D Monocytes % 6.4 Eosinophils % 0.3 Basophils % 0.8 Sodium 137 Potassium 4.7 Chloride 104 Carbon Dioxide 24 Anion Gap 9 BUN 20 H Creatinine 1.4 H D Random Glucose 190 H D Hemoglobin A1c % 8.3 H Calcium 8.6 Phosphorus 2.5 Magnesium 2.2 Creatine Kinase 79 Troponin I < 0.02 Triglycerides 69 Cholesterol 93 Total LDL Cholesterol 54 HDL Cholesterol 34 L Digoxin 0.4216 L 3 03/02/17 03/03/17 03/03/17 12:20 05:35 05:35 WBC 8.2 RBC 3.79 L Hgb 10.9 L Hct 33.2 L MCV 87.6 MCHC 32.8 RDW 16.3 H Plt Count 271 MPV 8.6 Neutrophils % 78.6 Lymphocytes % 13.4 D Monocytes % 7.1 Eosinophils % 0.5 Basophils % 0.4 Sodium 140 Potassium 4.6 Chloride 104 Carbon Dioxide 25 Anion Gap 11 BUN 19 H Creatinine 1.5 H Random Glucose 155 H Hemoglobin A1c % Calcium 8.6 Phosphorus Magnesium Creatine Kinase 81 Troponin I < 0.02 Triglycerides Cholesterol Total LDL Cholesterol HDL Cholesterol Digoxin Active Medications 3 Generic Name Dose Route Start Last Admin Trade Name Freq PRN Reason Stop Dose Admin Acetaminophen 650 mg 03/02/17 06:04 Tylenol - PO Q6H PRN FEVER OR PAIN Apixaban 2.5 mg 03/02/17 10:00 03/03/17 08:40 Eliquis - PO 2.5 mg BID ANASTASIA Administration Ceftriaxone Sodium 50 mls @ 100 mls/hr 03/02/17 10:00 03/02/17 10:00 Rocephin 1gm Ivpb (Pre-Docked) IVPB 100 mls/hr DAILY ANASTASIA Administration Metoprolol Succinate 100 mg 03/03/17 10:00 Toprol Xl - PO DAILY ANASTASIA Metoprolol Succinate 50 mg 03/03/17 09:18 Toprol Xl - PO 03/03/17 09:19 ONCE ONE Rosuvastatin Calcium 10 mg 03/02/17 10:00 03/02/17 15:00 Crestor - PO 10 mg DAILY ANASTASIA Administration Radiograph Interpretation: 03/02/17 03:17 EXAM: CT abdomen and pelvis without contrast IMAGES: [id number] INDICATION: Lower abdominal pain. Rule out appendicitis DATE OF SERVICE: 2017-03-02 02:05:10.0 COMPARISON: none FINDINGS: Lung bases are clear. The visualized cardiac chambers are normal size and configuration. Normal unenhanced liver, gallbladder , pancreas, spleen, adrenal glands and kidneys. The stomach and abdominal small and large bowel are normal. There is no aortic aneurysm. There is a moderate degree of inflammatory retroperitoneal lymphadenopathy. Neoplasm, such as lymphoma or metastases must be considered. There is a moderate size left inguinal hernia containing portion of bladder without bladder inflammation. The pelvic small and large bowel are normal. There is no evidence of appendicitis, although the appendix is not clearly visualized. The prostate gland is mildly enlarged. No pelvic free fluid is identified. There is no significant pelvic lymphadenopathy. No multiple sclerotic bone lesions, highly suspicious for metastases, possibly prostate cancer. There are no fractures. IMPRESSION: Moderate degree of inflammatory retroperitoneal adenopathy may be neoplastic in nature, possibly metastatic prostate cancer or lymphoma. Multiple blastic bone metastases. Moderate-sized left inguinal hernia containing a portion of bladder. Mild prostate enlargement. THIS DOCUMENT HAS BEEN ELECTRONICALLY SIGNED Arturo Briseno MD 03/02/2017 02:39 EST Microbiology 03/01/17 18:40 Urine - Urine Harden Urine Culture - Final NO GROWTH OBTAINED 03/01/17 18:29 Blood - Peripheral Venous Blood Culture - Preliminary NO GROWTH OBTAINED AFTER 24 HOURS, INCUBATION TO CONTINUE FOR 4 DAYS. 03/01/17 18:20 Blood - Peripheral Venous Blood Culture - Preliminary NO GROWTH OBTAINED AFTER 24 HOURS, INCUBATION TO CONTINUE FOR 4 DAYS. ASSESSMENT/PLAN: A: 87 y/o male with a PMH of Urinary Retention, BPH, Prostate Ca (diagnosed 5 yrs ago), Afib (on Eliquis), HTN, HLD, DM, [place]. Admitted to Telemetry with Afib with RVR, UTI for further evaluation of his emergent condition. Spoke with Daughter Bushra Ward ([phone]) who states he is a patient of [facility]. P: 1. Afib with RVR - Tele monitoring - [id number] Score 4 - Case d/w cardiology [place] - Pt with increased HR given diltiazem 10mg IVP with adequate response - EKG- Afib with RVR, ST & T wave abnormality, consider inferior ischemia - Continue Eliquis, Digoxin - Metoprolol Succinate 100mg daily - Cardizem 30mg qid - Digoxin level in AM - trops (-) x3 - Echo in AM - Unsuccessfully attempted to contact pt Social Work Assistant- Prem in the [facility] 2. UTI - UA- cloudy, +1 Blood, +2 Protein, +1 glucose, some WBCs - Urine Culture- No growth obtained. - Levaquin given in ED - Stop Ceftriaxone - Monitor vitals 3. Pelvic Pain- controlled presently - Likely secondary to UTI vs Prostate Tumor - CTAP- see above - Patient has hx prostate Ca x 5 yrs- receives "a shot" every 2 weeks - Spoke with Alexys Figueroa of [facility]- He is unfamiliar with the patient but will f/u tomorrow with office records. - Unable to contact Dr. Grubbs oncologist/urologist ([phone]). Patient f/u upon d/c for further evaluation and management 4. Hypertension - Monitor BP - Increase Toprol XL to 100mg - Monitor renal function 5. Hyperlipidemia - Continue Crestor 6. DM - BGMs - ISS - Hold Metformin 2/2 renal insufficiency - HgBA1C- 8.3 7. BPH/Urinary Retention - stable - Patient denies trouble voiding or decreased urine flow - Currently not on medication - f/u with Urologist upon d/c for continued management 8. FEN - Patient tolerates PO Fluids - Replete lytes prn - Low Na, Diabetic Diet 9. DVT Prophylaxis - OOB - SCDs - Continue Eliquis Code Status: Full Code Dispo: Continue Inpatient Ca Visit type - Emergency Visit Emergency Visit: Yes ED Registration Date: 03/02/17 Care time: The patient presented to the Emergency Department on the above date and was hospitalized for further evaluation of their emergent condition. - New Patient This patient is new to me today: No - Critical Care Critical Care patient: No
[2017-03-03] MEDS ORDERED: METOPROLOL SUCCINATE 50 MG TAB.SR.24H (FP) PO ONE (09:45)
--- NOTE | 2017-03-03 09:52 | PN ---
Progress Note, Physician Chief Complaint: Pt sitting up in [facility]; asks where his is; knows he is in a hospital. Denies chest pain, palpitations, or dyspnea. History of Present Illness: The patient is an 87 year old male (garry Crain), with significant past medical history of urinary retention, BPH, Afib, hypertension, chronic lower abdominal pain (for at least the past year), anxiety,and hyperlipidemia, who presents today complaining of 2 days of fever, pelvic pain, urinary retention, and dysuria. The patient states that he is unable to urinate over the past 2 days and when he does it is painful. The patient and the home health aid, who accompanied him to the emergency room, are poor historians. They report that these symptoms have occurred over the past 6 years and he has gotten catheterized previously. The patients fever today was 100.3 degrees. Denies hematuria. Denies chest pain, SOB, cough. Denies abdominal pain. Denies chills, nausea, vomiting. Allergies: none reported - Current Medication List Current Medications: Active Medications Acetaminophen (Tylenol -) 650 mg PO Q6H PRN PRN Reason: FEVER OR PAIN Apixaban (Eliquis -) 2.5 mg PO BID [facility] Last Admin: 03/03/17 08:40 Dose: 2.5 mg Ceftriaxone Sodium (Rocephin 1gm Ivpb (Pre-Docked)) 50 mls @ 100 mls/hr IVPB DAILY [facility] Last Admin: 03/02/17 10:00 Dose: 100 mls/hr Lisinopril (Prinivil) 2.5 mg PO DAILY [facility] Metoprolol Succinate (Toprol Xl -) 100 mg PO DAILY [facility] Rosuvastatin Calcium (Crestor -) 10 mg PO DAILY [facility] Last Admin: 03/02/17 15:00 Dose: 10 mg - Objective Vital Signs: Vital Signs Temperature 98.7 F 03/03/17 08:46 Pulse Rate 123 H 03/03/17 08:46 Respiratory Rate 18 03/03/17 08:46 Blood Pressure 121/67 03/03/17 08:46 O2 Sat by Pulse Oximetry (%) 100 03/02/17 22:00 Labs: CBC, BMP 03/03/17 05:35 03/03/17 05:35 INR, PTT INR 1.19 (0.82-1.09) H 03/01/17 18:25 Problem List - Problems (1) Atrial fibrillation with RVR Assessment/Plan: On metoprolol; change to long-acting metoprolol succinate, and increase to 100 mg daily. Pt had been on digoxin (level 0.4); will try to avoid continuing because of potential adverse cardiac effects; if a 2nd AV blccker is needed, will use diltiazem, unless LVEF is markedly reduced (await ECHO). Apixaban for anticoagulation. Avoid excessive dehydration (abnormal BUN/Cr). Maintain electrolytes. TSH. Total cholesterol is low. Code(s): I48.91 - UNSPECIFIED ATRIAL FIBRILLATION (2) UTI (urinary tract infection) Code(s): N39.0 - URINARY TRACT INFECTION, SITE NOT SPECIFIED (3) HTN (hypertension) Code(s): I10 - ESSENTIAL (PRIMARY) HYPERTENSION (4) Cardiomegaly Assessment/Plan: f/u ECHO for LVEF, chamber sizes, valve status. Code(s): I51.7 - CARDIOMEGALY (5) Diabetes Assessment/Plan: elevated glucose; HGBA1C 8.3. F/u with PMD. Start lisinopril (DM; HTN; renal insufficiency); f/u BUN/Cr, electrolytes. Code(s): E11.9 - TYPE 2 DIABETES MELLITUS WITHOUT COMPLICATIONS (6) Hyperlipidemia Assessment/Plan: on statin; lipids well-controlled. Code(s): E78.5 - HYPERLIPIDEMIA, UNSPECIFIED
[2017-03-03] MEDS: ROSUVASTATIN CA 10 MG TABLET (FP) PO SCH (10:32)
[2017-03-03] MEDS: LISINOPRIL 5 MG TABLET (FP) PO SCH (10:33)
[2017-03-03 10:51] LABS: THYROID STIMULATING HORMONE 1.94 uIU/ml (0.358-3.74)
[2017-03-03] MEDS: CEFTRIAXONE 50 ML IVPB SCH (11:16)
[2017-03-03] MEDS: INSULIN SLIDING SCALE (NOVOLOG) 1 VIAL SQ SCH ×3 (12:00→22:28)
[2017-03-03] MEDS: dilTIAZem HCL 60 MG TABLET (FP) PO SCH ×3 (16:32→22:24)
--- NOTE | 2017-03-03 20:34 | EKG ---
Test Reason : Blood Pressure : / mmHG Vent. Rate : 152 BPM Atrial Rate : 156 BPM P-R Int : 000 ms QRS Dur : 070 ms QT Int : 286 ms P-R-T Axes : 000 015 -37 degrees QTc Int : 454 ms ATRIAL FIBRILLATION WITH RAPID VENTRICULAR RESPONSE ABNORMAL ECG WHEN COMPARED WITH ECG OF 21-FEB-2012 09:22, VENT. RATE HAS INCREASED BY 83 BPM T WAVE INVERSION NOW EVIDENT IN ANTERIOR LEADS Confirmed by JULIAN BYERS, ЕКАТЕРИНА ([id number]) on 03/03/2017 8:34:32 PM Referred By: Confirmed By:ЕКАТЕРИНА JORDAN MD
--- NOTE | 2017-03-03 20:37 | EKG ---
Test Reason : Blood Pressure : / mmHG Vent. Rate : 100 BPM Atrial Rate : 105 BPM P-R Int : 000 ms QRS Dur : 080 ms QT Int : 330 ms P-R-T Axes : 000 000 -21 degrees QTc Int : 425 ms ATRIAL FIBRILLATION T WAVE ABNORMALITY, CONSIDER ANTERIOR ISCHEMIA T WAVE ABNORMALITY, CONSIDER INFERIOR ISCHEMIA ABNORMAL ECG WHEN COMPARED WITH ECG OF 01-MAR-2017 18:16, VENT. RATE HAS DECREASED BY [address] ABNORMALITY IS LESS EVIDENT Confirmed by ЕКАТЕРИНА JORDAN MD ([id number]) on 03/03/2017 8:36:34 PM Referred By: KAMERON CRAFT Confirmed By:ЕКАТЕРИНА JORDAN MD
[2017-03-03] MEDS ORDERED: INSULIN (NOVOLOG) ASPART 100 UNITS/ML 10ML VIAL ONE (21:25)
[2017-03-04] MEDS: INSULIN SLIDING SCALE (NOVOLOG) 1 VIAL SQ SCH ×2 (06:03→11:08)
[2017-03-04 07:55] LABS: BASOPHIL 1.1 % (0-2.0); EOSINOPHIL 1.3 % (0-4.5); MCH 28.9 pg (25.7-33.7); MEAN CELL VOLUME 87.5 fl (80-96); MEAN PLT VOLUME 8.5 fl (7.5-11.1); NEUTROPHILS 75.7 % (42.8-82.8); PLATELET COUNT 298 K/MM3 (134-434); RDW 16.1 % (11.9-15.9); WHITE BLOOD COUNT 7.3 K/mm3 (4.0-10.0)
[2017-03-04 08:18] LABS: ANION GAP 9 (8-16); CALCIUM 8.6 mg/dL (8.5-10.1); CO2 26 mmol/L (21-32); CREATININE 1.6 mg/dL (0.7-1.3); GLUCOSE,RANDOM 89 mg/dL (74-106)
[2017-03-04] MEDS: APIXABAN 2.5 MG TABLET PO SCH (09:15)
[2017-03-04] MEDS: dilTIAZem HCL 60 MG TABLET (FP) PO SCH (09:15)
[2017-03-04] MEDS: LISINOPRIL 5 MG TABLET (FP) PO SCH (09:16)
[2017-03-04] MEDS: ROSUVASTATIN CA 10 MG TABLET (FP) PO SCH (09:16)
[2017-03-04] MEDS ORDERED: METOPROLOL SUCCINATE 100 MG TAB.SR.24H (FP) PO SCH (10:00)
--- NOTE | 2017-03-04 11:59 | PN ---
Progress Note, Physician History of Present Illness: The patient is an 87 year old male (garry Crain), with significant past medical history of urinary retention, BPH, Afib, hypertension, chronic lower abdominal pain (for at least the past year), anxiety,and hyperlipidemia, who presents today complaining of 2 days of fever, pelvic pain, urinary retention, and dysuria. The patient states that he is unable to urinate over the past 2 days and when he does it is painful. The patient and the home health aid, who accompanied him to the emergency room, are poor historians. They report that these symptoms have occurred over the past 6 years and he has gotten catheterized previously. The patients fever today was 100.3 degrees. - Current Medication List Current Medications: Active Medications Acetaminophen (Tylenol -) 650 mg PO Q6H PRN PRN Reason: FEVER OR PAIN Last Admin: 03/03/17 14:01 Dose: 650 mg Apixaban (Eliquis -) 2.5 mg PO BID [facility] Last Admin: 03/04/17 09:15 Dose: 2.5 mg Diltiazem HCl (Cardizem -) 30 mg PO QID [facility] Last Admin: 03/04/17 09:15 Dose: 30 mg Insulin Aspart (Novolog Vial Sliding Scale -) 1 vial SQ ACHS [facility] PRN Reason: Protocol Last Admin: 03/04/17 11:08 Dose: Not Given Lisinopril (Prinivil) 2.5 mg PO DAILY [facility] Last Admin: 03/04/17 09:16 Dose: 2.5 mg Metoprolol Succinate (Toprol Xl -) 100 mg PO DAILY [facility] Last Admin: 03/04/17 09:16 Dose: 100 mg Rosuvastatin Calcium (Crestor -) 10 mg PO DAILY [facility] Last Admin: 03/04/17 09:16 Dose: 10 mg - Objective Vital Signs: Vital Signs Temperature 98.5 F 03/04/17 06:00 Pulse Rate 105 H 03/04/17 06:00 Respiratory Rate 20 03/04/17 06:00 Blood Pressure 127/67 03/04/17 06:00 O2 Sat by Pulse Oximetry (%) 100 03/03/17 09:00 Eyes: Yes: WNL, Conjunctiva Clear, EOM Intact HENT: Yes: WNL, Atraumatic, Normocephalic Neck: Yes: WNL, Supple, Trachea Midline Cardiovascular: Yes: Pulse Irregular, S1, S2 Respiratory: Yes: WNL, Regular, CTA Bilaterally Gastrointestinal: Yes: WNL, Normal Bowel Sounds Genitourinary: Yes: WNL Musculoskeletal: Yes: WNL Extremities: Yes: WNL Edema: No Integumentary: Yes: WNL Neurological: Yes: WNL, Alert, Oriented ...Motor Strength: WNL Psychiatric: Yes: WNL Labs: CBC, BMP 03/04/17 05:57 03/04/17 05:57 INR, PTT INR 1.19 (0.82-1.09) H 03/01/17 18:25 Assessment/Plan - Problems (1) Atrial fibrillation with RVR Assessment/Plan: On metoprolol; change to long-acting metoprolol succinate, and increase to 100 mg daily. Pt had been on digoxin (level 0.4); will try to avoid continuing because of potential adverse cardiac effects; if a 2nd AV blccker is needed, will use diltiazem, unless LVEF is markedly reduced (await ECHO). Apixaban for anticoagulation. Avoid excessive dehydration (abnormal BUN/Cr). Maintain electrolytes. TSH. Total cholesterol is low. Code(s): I48.91 - UNSPECIFIED ATRIAL FIBRILLATION (2) UTI (urinary tract infection) Code(s): N39.0 - URINARY TRACT INFECTION, SITE NOT SPECIFIED (3) HTN (hypertension) Code(s): I10 - ESSENTIAL (PRIMARY) HYPERTENSION (4) Cardiomegaly Assessment/Plan: f/u ECHO for LVEF, chamber sizes, valve status. Code(s): I51.7 - CARDIOMEGALY (5) Diabetes Assessment/Plan: elevated glucose; HGBA1C 8.3. F/u with PMD. Start lisinopril (DM; HTN; renal insufficiency); f/u BUN/Cr, electrolytes. Code(s): E11.9 - TYPE 2 DIABETES MELLITUS WITHOUT COMPLICATIONS (6) Hyperlipidemia Assessment/Plan: on statin; lipids well-controlled. Code(s): E78.5 - HYPERLIPIDEMIA, UNSPECIFIED
[2017-03-04 15:09] VITALS: BP 107/71; PULSE 106; TEMP 98.2
--- NOTE | 2017-03-04 15:14 | DS ---
Physical Exam: SUBJECTIVE: Patient seen and examined OBJECTIVE: Vital Signs Period Temp Pulse Resp BP Sys/Ralph Pulse Ox Last 24 Hr 97.2 F-99 F 94-115 20-20 103-127/65-81 PHYSICAL EXAM GENERAL: The patient is awake, alert, and fully oriented, in no acute distress. HEAD: Normal with no signs of trauma. EYES: PERRL, extraocular movements intact, sclera anicteric, conjunctiva clear. ENT: Ears normal, nares patent, oropharynx clear without exudates, moist mucous membranes. NECK: Trachea midline, full range of motion, supple. LUNGS: Breath sounds equal, clear to auscultation bilaterally, no wheezes, no crackles, no accessory muscle use. HEART: Regular rate and rhythm, S1, S2 without murmur, rub or gallop. ABDOMEN: Soft, nontender, nondistended, normoactive bowel sounds, no guarding, no rebound, no hepatosplenomegaly, no masses. EXTREMITIES: 2+ pulses, warm, well-perfused, no edema. NEUROLOGICAL: Cranial nerves II through XII grossly intact. Normal speech, gait not observed. PSYCH: Normal mood, normal affect. SKIN: Warm, dry, normal turgor, no rashes or lesions noted. LABS Laboratory Results - last 24 hr 03/03/17 03/03/17 03/04/17 16:50 22:26 05:38 WBC RBC Hgb Hct MCV MCHC RDW Plt Count MPV Neutrophils % Lymphocytes % Monocytes % Eosinophils % Basophils % Sodium Potassium Chloride Carbon Dioxide Anion Gap BUN Creatinine POC Glucometer 112 138 156 Random Glucose Calcium 03/04/17 03/04/17 03/04/17 05:57 05:57 11:01 WBC 7.3 RBC 3.74 L Hgb 10.8 L Hct 32.7 L MCV 87.5 MCHC 33.0 RDW 16.1 H Plt Count 298 MPV 8.5 Neutrophils % 75.7 Lymphocytes % 15.1 Monocytes % 6.8 Eosinophils % 1.3 D Basophils % 1.1 Sodium 140 Potassium 4.4 Chloride 105 Carbon Dioxide 26 Anion Gap 9 BUN 17 Creatinine 1.6 H POC Glucometer 135 Random Glucose 89 D Calcium 8.6 HOSPITAL COURSE: Date of Admission:03/02/17 Date of Discharge: 03/04/17 Discharge Summary Reason For Visit: UTI, A-FIB WITH RVR Current Active Problems Atrial fibrillation with RVR (Acute) Cardiomegaly (Acute) Diabetes (Acute) HTN (hypertension) (Acute) Hyperlipidemia (Acute) UTI (urinary tract infection) (Acute) Condition: Stable - Instructions Diet, Activity, Other Instructions: Please return to the ED for any new, persistent, or worsening symptoms. Follow up with your PCP in 1 week - Follow up with Dr Grubbs oncologist/urologist ([phone]) upon d/c for further evaluation and management, bring your discharge paperwork and CD and report of CT scan of abdomen and pelvic - Take new medications as listed on home medication list, new medications have been sent to your pharmacy - Follow up with Cardiology in 1-2 weeks (referral enclosed) - Do not restart Metformin until have kidney blood levels rechecked, you have been placed on a new oral anti diabetes medication Referrals: Gabino Brooks MD [Staff Physician] - 1 Week STAFF,NOT ON [Primary Care Provider] - 1 Week (- f/u with Romie oncologist/ urologist ([phone]) upon d/c for further evaluation and management. bring copy of discharge paper work and CD ) Disposition: HOME - Home Medications Comprehensive Discharge Medication List: Ambulatory Orders Apixaban [Eliquis] 2.5 mg PO DAILY 03/01/17 Rosuvastatin [Crestor -] 10 mg PO DAILY 03/01/17 Diltiazem Cd [Cardizem Cd -] 120 mg PO DAILY #30 cap 03/04/17 Glipizide [Glipizide ER] 2.5 mg PO DAILY #30 tab.er.24 03/04/17 Lisinopril [Prinivil] 2.5 mg PO DAILY #30 tablet 03/04/17 Metoprolol Succinate [Toprol XL -] 100 mg PO DAILY #30 tab 03/04/17
== END 2017-03-04 17:14 | disposition home or self-care (01) | DRG 309 ==
LOC: JER 17:54 → JERBED 03-02 04:15 → UNDOADMIN 03-02 04:15 → J4W 03-02 17:33
PROVIDERS: ADMIT Internal Medicine; ATTEND Nurse Practitioner Acute Care
DX: I48.91 Unspecified atrial fibrillation (principal); N39.0 Urinary tract infection, site not specified; N40.0 Benign prostatic hyperplasia without lower urinary tract symptoms; R33.9 Retention of urine, unspecified; E78.5 Hyperlipidemia, unspecified; I10 Essential (primary) hypertension; C61 Malignant neoplasm of prostate; E11.9 Type 2 diabetes mellitus without complications; R10.2 Pelvic and perineal pain; F41.9 Anxiety disorder, unspecified; R10.30 Lower abdominal pain, unspecified; K21.9 Gastro-esophageal reflux disease without esophagitis; I51.7 Cardiomegaly
CPT/HCPCS: 36415; 71010-TC; 74176-TC; 80048; 80053; 80061; 80162; 81003; 81015; 82550; 82803; 83036; 83605; 83721; 83735; 84100; 84443; 84484; 85025; 85610; 85730; 86850; 86900; 86901; 87040; 87086; 93005; 93010; 93306-TC; 99285-25

== ENCOUNTER 2017-05-03 22:37 | Inpatient (IN) | payer OTHER ==
[2017-05-03 23:32] LABS: BASOPHIL 0.6 % (0-2.0); EOSINOPHIL 0.3 % (0-4.5); MCH 27.2 pg (25.7-33.7); MCHC 31.9 g/dl (32.0-35.9); MEAN CELL VOLUME 85.1 fl (80-96); MEAN PLT VOLUME 8.3 fl (7.5-11.1); NEUTROPHILS 74.7 % (42.8-82.8); PLATELET COUNT 345 K/MM3 (134-434); RDW 18.4 % (11.9-15.9); WHITE BLOOD COUNT 12.7 K/mm3 (4.0-10.0)
[2017-05-03 23:43] LABS: INR 1.59 (0.82-1.09); PROTHROMBIN TIME (PATIENT) 17.6 SEC (9.98-11.88)
[2017-05-03 23:45] LABS: ACTIVATED PTT 34.2 SECONDS (26.9-34.4)
--- NOTE | 2017-05-03 23:52 | PDOC ---
History of Present Illness - General History Source: Family Exam Limitations: Dementia - History of Present Illness Initial Comments: 05/03/17 23:55 The patient is an 87 year old male living at home with a home health aide, accompanied by daughter, with significant past medical history of urinary retention, BPH, Afib, hypertension, hyperlipidemia, dementia, and prostate ca ( currently undergoing treatment and is followed by his Oncologist Dr. Ivan Maier ), who presents to the ED with fever that began today. As per daughter, the patient was noted to have a fever of 101 this morning and has also been experiencing a cough for the past two weeks. Pt has not been eating or drinking much in the past few days and has been feeling very weak. Daughter states that it is has been difficult for the patient to ambulate on his own recently. She denies that the patient is experiencing any nausea, vomiting, diarrhea, or abdominal pain. She denies that the pt is experiencing any shortness of breath or chest pain. She denies that the patient is experiencing any urinary changes. Medications: Eliquis 2.5 mg - twice daily Digoxin 0.125 mg - one tablet every other day Glipizide 2.5 mg - once daily Metoprolol succinate 100 mg - once daily Rosuvastatin calcium 10mg - once daily <Nathalia Posada - Last Filed: 05/04/17 00:27> - General History Source: Patient, Care Provider, Family (daughter) <Christina Negron - Last Filed: 05/04/17 01:59> - General Chief Complaint: SIRS, Suspected/Possible Stated Complaint: FEVER Past History <Nathalia Posada - Last Filed: 05/04/17 00:27> - Past Medical History Cardiac Disorders: Yes (atrial fibrillation) Diabetes: Yes HTN: Yes Hypercholesterolemia: Yes - Surgical History Neurologic Surgery: Yes - Psycho/Social/Smoking Cessation Hx Anxiety: No Suicidal Ideation: No Smoking Status: No Smoking History: Unknown if ever smoked Have you smoked in the past 12 months: No Number of Cigarettes Smoked Daily: 0 Information on smoking cessation initiated: No Hx Alcohol Use: No Drug/Substance Use Hx: No Substance Use Type: None <Christina Negron - Last Filed: 05/04/17 01:59> - Past Medical History Allergies/Adverse Reactions: Allergies Allergy/AdvReac Type Severity Reaction Status Date / Time No Known Allergies Allergy Verified 05/04/17 01:32 Home Medications: Ambulatory Orders Apixaban [Eliquis] 2.5 mg PO DAILY 03/01/17 Rosuvastatin [Crestor -] 10 mg PO DAILY 03/01/17 Diltiazem Cd [Cardizem Cd -] 120 mg PO DAILY #30 cap 03/04/17 Glipizide [Glipizide ER] 2.5 mg PO DAILY #30 tab.er.24 03/04/17 Lisinopril [Prinivil] 2.5 mg PO DAILY #30 tablet 03/04/17 Metoprolol Succinate [Toprol XL -] 100 mg PO DAILY #30 tab 03/04/17 Review of Systems - Review of Systems Able to Perform ROS?: Yes Comments:: 05/03/17 23:56 GENERAL/CONSTITUTIONAL: (+)Fever, weakness, loss of appetite. No chills. HEAD, EYES, EARS, NOSE AND THROAT: No change in vision. No ear pain or discharge. No sore throat. CARDIOVASCULAR: No chest pain or shortness of breath. RESPIRATORY: (+)Cough. No wheezing, or hemoptysis. GASTROINTESTINAL: No nausea, vomiting, diarrhea or constipation. GENITOURINARY: No dysuria, frequency, or change in urination. MUSCULOSKELETAL: No joint or muscle swelling or pain. No neck or back pain. SKIN: No rash NEUROLOGIC: No headache, vertigo, loss of consciousness, or change in strength/ sensation. ENDOCRINE: No increased thirst. No abnormal weight change. HEMATOLOGIC/LYMPHATIC: No anemia, easy bleeding, or history of blood clots. ALLERGIC/IMMUNOLOGIC: No hives or skin allergy. <Nathalia Posada - Last Filed: 05/04/17 00:27> *Physical Exam - Vital Signs Last Vital Signs Temp Pulse Resp BP Pulse Ox 98.1 F 114 H 15 116/85 99 05/03/17 23:15 05/03/17 23:15 05/03/17 23:15 05/03/17 23:15 05/03/17 23:15 - Physical Exam Comments: 05/03/17 23:59 GENERAL: Awake, alert, and fully oriented, in no acute distress HEAD: No signs of trauma EYES: PERRLA, EOMI, sclera anicteric, conjunctiva clear ENT: (+)Edentulous, dry mucous membranesAuricles normal inspection, hearing grossly normal, nares patent, oropharynx clear without exudates. NECK: Normal ROM, supple, no lymphadenopathy, JVD, or masses LUNGS: Breath sounds equal, clear to auscultation bilaterally. No wheezes, and no crackles HEART: (+)Irregular tachycardia .normal S1 and S2, no murmurs, rubs or gallops ABDOMEN: Soft, nontender, normoactive bowel sounds. No guarding, no rebound. No masses EXTREMITIES: Normal range of motion, no edema. No clubbing or cyanosis. No cords, erythema, or tenderness. Extremities are warm and well perfused. NEUROLOGICAL: (+)Very hard of hearing. Only answering with nonverbal cues. Appears to be moving all extremities. SKIN: Warm, Dry, normal turgor, no rashes or lesions noted <Nathalia Posada - Last Filed: 05/04/17 00:27> - Vital Signs Last Vital Signs Temp Pulse Resp BP Pulse Ox 98.1 F 114 H 15 116/85 99 05/03/17 23:15 05/03/17 23:15 05/03/17 23:15 05/03/17 23:15 05/03/17 23:15 <Christina Negron - Last Filed: 05/04/17 01:59> ED Treatment Course - LABORATORY CBC & Chemistry Diagram: 05/03/17 23:20 05/03/17 23:20 - ADDITIONAL ORDERS Additional order review: Laboratory Results 05/03/17 05/03/17 23:20 23:20 INR 1.59 H D PTT (Actin FS) 34.2 Creatine Kinase Cancelled Troponin I Cancelled 05/03/17 23:20 RBC 3.59 L MCV 85.1 MCHC 31.9 L RDW 18.4 H D MPV 8.3 Neutrophils % 74.7 Lymphocytes % 15.0 Monocytes % 9.4 Eosinophils % 0.3 Basophils % 0.6 <Nathalia Posada - Last Filed: 05/04/17 00:27> - LABORATORY CBC & Chemistry Diagram: 05/03/17 23:20 05/03/17 23:20 - ADDITIONAL ORDERS Additional order review: 05/03/17 23:20 RBC 3.59 L MCV 85.1 MCHC 31.9 L RDW 18.4 H D MPV 8.3 Neutrophils % 74.7 Lymphocytes % 15.0 Monocytes % 9.4 Eosinophils % 0.3 Basophils % 0.6 - RADIOLOGY Radiology Studies Ordered: Category Date Time Status CHEST X-RAY PORTABLE* [RAD] Stat Radiology 05/03/17 23:09 Ordered <Christina Negron - Last Filed: 05/04/17 01:59> Medical Decision Making - Medical Decision Making 05/03/17 23:46 87 yo male with afib, dm htn prostate CA dementia lives at home with home health aid, here today with daughter for fever x one day. has had cough x 2 weeks. recently changed medication for afib to dig qod, and diltiazem daily. no other complaints. no n/v fever 101. on exam pt awake nonverbal, hard hearing. eyes open. lungs clear heart irreg tachycardia. abd soft nt nd. ext wwp no edema. nuero awake alert . nonverbal. skin warm and dry. plan : pt appears septic. likley secondary to pneumonia. differential includes uti, bacteremia. afib with RVR. plan iv hydration, then rate control tylenol septic workup. will treat with vancomycin and zosyn for coverage of HCAP. will d /w pcp. bedside TTE indication: hypotension focused ED cardiac TTE performed. heart visualized in 4 views. parasternal long and short, subxiphoid, and apical good contractility. no pericardial effusion. no signs of rv strain. IVC with complete collapse. impression: good contractility, hypovolemia. bilat lung ultrasound A line predominant bilaterally. Air bronchograms noted left lung base. impression: air bronchograms left lung possible pneumonia, a line predominant. plan iv hydration abx. <Christina Negron - Last Filed: 05/04/17 01:59> *DC/Admit/Observation/Transfer - Attestations Scribe Attestion: 05/04/17 00:04 Documentation prepared by Nathalia Posada, acting as family practice medical doctor for Christina Negron MD. <Nathalia Posada - Last Filed: 05/04/17 00:27> - Discharge Dispostion Admit: Yes <Christina Negron - Last Filed: 05/04/17 01:59> Diagnosis at time of Disposition: Sepsis, Atrial fibrillation with RVR
[2017-05-03 23:58] LABS: ALBUMIN 2.3 g/dl (3.4-5.0); ANION GAP 11 (8-16); CALCIUM 8.3 mg/dL (8.5-10.1); CO2 21 mmol/L (21-32); CPK 148 IU/L (39-308); CREATININE 1.9 mg/dL (0.7-1.3); GLUCOSE,RANDOM 122 mg/dL (74-106); SGOT/AST 52 U/L (15-37); SGPT/ALT 60 U/L (12-78); TOT PROT 6.4 g/dl (6.4-8.2)
[2017-05-04 00:09] LABS: TROPONIN I < 0.02 ng/ml (0.00-0.05)
[2017-05-04 00:18] LABS: ALK PHOS 1273 U/L (45-117)
[2017-05-04 00:54] LABS: URINE APPEARANCE SLCLOUDY; URINE BILIRUBIN NEGATIVE (NEGATIVE); URINE BLOOD NEGATIVE (NEGATIVE); URINE COLOR LTYELLOW; URINE GLUCOSE (UA) 2+ (NEGATIVE); URINE KETONE NEGATIVE (NEGATIVE); URINE LEUK ESTERASE NEGATIVE (NEGATIVE); URINE NITRITE NEGATIVE (NEGATIVE); URINE UROBILINOGEN NEGATIVE mg/dL (0.2-1.0)
[2017-05-04 00:55] LABS: URINE PROTEIN 1+ (NEGATIVE)
[2017-05-04 00:56] LABS: URINE BACTERIA RARE /hpf (NONE SEEN); URINE RBC <1 /hpf (0-3); URINE WBC 1 /hpf (3-5)
[2017-05-04 01:00] LABS: VENOUS PH 7.32 (7.32-7.42)
[2017-05-04 01:01] LABS: VENOUS BLOOD GAS HCO3 21.4 meq/L (19-25)
[2017-05-04] MEDS ORDERED: SODIUM CHLORIDE 0.9% 1000 ML INFUS.BAG IV ONE ×2 (01:20→01:27)
[2017-05-04] MEDS ORDERED: VANCOMYCIN 1,000 MG in DEXTROSE 5%-WATER - 250 ML IVPB ONE (01:23)
[2017-05-04] MEDS ORDERED: PIPERACILLIN/TAZOB 3.375 GM 3.375 GM in DEXTROSE 5%-WATER - 50 ML IVPB ONE (01:24)
[2017-05-04] MEDS ORDERED: dilTIAZem HCL 50 MG/10 ML - 10 ML VIAL IVPUSH ONE (01:27)
[2017-05-04] MEDS ORDERED: dilTIAZem HCL 125 MG/25 ML - 25 ML VIAL ONE (01:36)
[2017-05-04] MEDS ORDERED: PIPERACILLIN/TAZOB 3.375 GM 50 ML IVPB ONE (01:54)
--- NOTE | 2017-05-04 02:14 | HP ---
CHIEF COMPLAINT: fever and cough PCP: Devyn HISTORY OF PRESENT ILLNESS: This is an 87 year old man living at home with a home health aide, accompanied by daughter, with significant past medical history of urinary retention, BPH, Afib, hypertension, CHF, hyperlipidemia, dementia, and prostate ca (currently undergoing treatment and is followed by his Oncologist Dr. Ivan Maier), who presents to the ED with fever that began today. As per daughter, the patient was noted to have a fever of 101 this morning and has also been experiencing a cough for the past two weeks. Pt has not been eating or drinking much in the past few days and has been feeling very weak. Daughter states that it is has been difficult for the patient to ambulate on his own recently. She denies that the patient is experiencing any nausea, vomiting, diarrhea, or abdominal pain. She denies that the pt is experiencing any shortness of breath or chest pain. She denies that the patient is experiencing any urinary changes. ER course was notable for: (1) EKG- Afib with RVR (2) WBC-12.7 Recent Travel: none PAST MEDICAL HISTORY: see HPI PAST SURGICAL HISTORY: see HPI Social History: Smoking: none Alcohol: none Drugs: none Family History: non-contributory Allergies No Known Allergies Allergy (Verified 05/04/17 01:32) HOME MEDICATIONS: Home Medications Medication Instructions Recorded Apixaban [Eliquis] 2.5 mg PO DAILY 03/01/17 Rosuvastatin [Crestor -] 10 mg PO DAILY 03/01/17 Diltiazem Cd [Cardizem Cd -] 120 mg PO DAILY #30 cap 03/04/17 Glipizide [Glipizide ER] 2.5 mg PO DAILY #30 tab.er.24 03/04/17 Lisinopril [Prinivil] 2.5 mg PO DAILY #30 tablet 03/04/17 Metoprolol Succinate [Toprol XL -] 100 mg PO DAILY #30 tab 03/04/17 REVIEW OF SYSTEMS CONSTITUTIONAL: Present- fever, chills, generalized weakness, malaise, loss of appetite Absent: diaphoresis, weight change HEENT: Absent: rhinorrhea, nasal congestion, throat pain, throat swelling, difficulty swallowing, mouth swelling, ear pain, eye pain, visual changes CARDIOVASCULAR: Absent: chest pain, syncope, palpitations, irregular heart rate, lightheadedness , peripheral edema RESPIRATORY: Present- cough Absent: shortness of breath, dyspnea with exertion, orthopnea, wheezing, stridor , hemoptysis GASTROINTESTINAL: Absent: abdominal pain, abdominal distension, nausea, vomiting, diarrhea, constipation, melena, hematochezia GENITOURINARY: Absent: dysuria, frequency, urgency, hesitancy, hematuria, flank pain, genital pain MUSCULOSKELETAL: Absent: myalgia, arthralgia, joint swelling, back pain, neck pain SKIN: Absent: rash, itching, pallor HEMATOLOGIC/IMMUNOLOGIC: Absent: easy bleeding, easy bruising, lymphadenopathy, frequent infections ENDOCRINE: Absent: unexplained weight gain, unexplained weight loss, heat intolerance, cold intolerance NEUROLOGIC: Absent: headache, focal weakness or paresthesias, dizziness, unsteady gait, seizure, mental status changes, bladder or bowel incontinence PSYCHIATRIC: Absent: anxiety, depression, suicidal or homicidal ideation, hallucinations. PHYSICAL EXAMINATION Vital Signs - 24 hr 05/03/17 05/04/17 05/04/17 23:15 01:22 01:23 Temperature 98.1 F 99 F Pulse Rate 114 H Pulse Rate [ Apical] Respiratory 15 25 H Rate Blood Pressure 116/85 Blood Pressure 115/75 [Left Arm] O2 Sat by Pulse 99 Oximetry (%) 05/04/17 01:45 Temperature Pulse Rate Pulse Rate [ 95 H Apical] Respiratory 27 H Rate Blood Pressure Blood Pressure 116/72 [Left Arm] O2 Sat by Pulse 100 Oximetry (%) GENERAL: Awake, alert, and fully oriented, in no acute distress. [place]. HEAD: Normal with no signs of trauma. EYES: Pupils equal, round and reactive to light, extraocular movements intact, sclera anicteric, conjunctiva clear. No lid lag. EARS, NOSE, THROAT: Ears normal, nares patent, oropharynx clear without exudates. Moist mucous membranes. Edentulous. NECK: Normal range of motion, supple without lymphadenopathy, JVD, or masses. LUNGS: Breath sounds equal, clear to auscultation bilaterally. No wheezes, and no crackles. No accessory muscle use. HEART: Irregular rate and rhythm, normal S1 and S2 without murmur, rub or gallop. ABDOMEN: Soft, nontender, not distended, normoactive bowel sounds, no guarding, no rebound, no masses. No hepatomegaly or splenomegaly. MUSCULOSKELETAL: Normal range of motion at all joints. No bony deformities or tenderness. No CVA tenderness. UPPER EXTREMITIES: 2+ pulses, warm, well-perfused. No cyanosis. No clubbing. No peripheral edema. LOWER EXTREMITIES: 2+ pulses, warm, well-perfused. No calf tenderness. No peripheral edema. NEUROLOGICAL: Cranial nerves II-XII intact. Gait not tested. GCS- 4/4/6-14. PSYCHIATRIC: Cooperative. Good eye contact. Appropriate mood and affect. SKIN: Warm, dry, normal turgor, no rashes or lesions noted, normal capillary refill. Laboratory Results - last 24 hr 05/03/17 05/03/17 05/03/17 23:20 23:20 23:20 WBC 12.7 H D RBC 3.59 L Hgb 9.8 L Hct 30.5 L MCV 85.1 MCH 27.2 MCHC 31.9 L RDW 18.4 H D Plt Count 345 MPV 8.3 Neutrophils % 74.7 Lymphocytes % 15.0 Monocytes % 9.4 Eosinophils % 0.3 Basophils % 0.6 INR 1.59 H D PTT (Actin FS) 34.2 VBG pH POC VBG pCO2 POC VBG pO2 Mixed VBG HCO3 Sodium 134 L Potassium 5.2 H Chloride 102 Carbon Dioxide 21 Anion Gap 11 BUN 33 H D Creatinine 1.9 H Creat Clearance w eGFR 33.86 Random Glucose 122 H D Lactic Acid Calcium 8.3 L Total Bilirubin 1.0 AST 52 H ALT 60 D Alkaline Phosphatase 1273 H D Creatine Kinase 148 Troponin I < 0.02 B-Natriuretic Peptide 3389.20 H Total Protein 6.4 Albumin 2.3 L Urine Color Urine Appearance Urine pH Urine Protein Urine Glucose (UA) Urine Ketones Urine Blood Urine Nitrite Urine Bilirubin Urine Urobilinogen Ur Leukocyte Esterase Urine RBC Urine WBC Ur Epithelial Cells Urine Bacteria Digoxin 05/03/17 05/03/17 05/03/17 23:20 23:20 23:20 WBC RBC Hgb Hct MCV MCH MCHC RDW Plt Count MPV Neutrophils % Lymphocytes % Monocytes % Eosinophils % Basophils % INR PTT (Actin FS) VBG pH POC VBG pCO2 POC VBG pO2 Mixed VBG HCO3 Sodium Potassium Chloride Carbon Dioxide Anion Gap BUN Creatinine Creat Clearance w eGFR Random Glucose Lactic Acid 1.8 Calcium Total Bilirubin AST ALT Alkaline Phosphatase Creatine Kinase Cancelled Troponin I Cancelled B-Natriuretic Peptide Total Protein Albumin Urine Color Ltyellow Urine Appearance Slcloudy Urine pH 6.0 Urine Protein 1+ H Urine Glucose (UA) 2+ H Urine Ketones Negative Urine Blood Negative Urine Nitrite Negative Urine Bilirubin Negative Urine Urobilinogen Negative Ur Leukocyte Esterase Negative Urine RBC <1 Urine WBC 1 Ur Epithelial Cells Rare Urine Bacteria Rare Digoxin 05/03/17 05/04/17 23:20 00:55 WBC RBC Hgb Hct MCV MCH MCHC RDW Plt Count MPV Neutrophils % Lymphocytes % Monocytes % Eosinophils % Basophils % INR PTT (Actin FS) VBG pH 7.32 POC VBG pCO2 43.0 POC VBG pO2 21.8 L D Mixed VBG HCO3 21.4 Sodium Potassium Chloride Carbon Dioxide Anion Gap BUN Creatinine Creat Clearance w eGFR Random Glucose Lactic Acid Calcium Total Bilirubin AST ALT Alkaline Phosphatase Creatine Kinase Troponin I B-Natriuretic Peptide Total Protein Albumin Urine Color Urine Appearance Urine pH Urine Protein Urine Glucose (UA) Urine Ketones Urine Blood Urine Nitrite Urine Bilirubin Urine Urobilinogen Ur Leukocyte Esterase Urine RBC Urine WBC Ur Epithelial Cells Urine Bacteria Digoxin 0.4900 L ASSESSMENT/PLAN: A: 87yo man with resolved a-fib with RVR in setting of ?CAP. P: Afib with RVR - resolved with Diltiazem 15mg IVP - continue Diltiazem 120mg daily - telemetry monitoring - Cardiology consult pending - continue home Eliquis - [id number] score-4 high risk for thrombolic event Leukocytosis - CXR pending - likely CAP given cough and fevers - trend WBC - trend fever curve Sepsis - Meets SIRS with RR, HR, Cr and WBC - Zosyn 3.375g q12h - Vanco renal dose - ID consult HTN - controlled - continue Lisinopril - continue Metoprolol - continue Diltiazem Prostate CA - monitor DM - hold oral hypoglycemics - FS qACHS - ISS F/E/N - Diabetic soft diet - replete prn PPX - held 2/2 Eliquis Dispo- requires inpatient treatment of his acute medical conditions Visit type - Emergency Visit Emergency Visit: Yes ED Registration Date: 05/04/17 Care time: The patient presented to the Emergency Department on the above date and was hospitalized for further evaluation of their emergent condition. - New Patient This patient is new to me today: Yes Date on this admission: 05/04/17 - Critical Care Critical Care patient: No
[2017-05-04 04:52] VITALS: BMI 25.2
[2017-05-04] MEDS: glipiZIDE-XL 2.5 MG TAB.ER.24 PO SCH ×2 (06:50→08:41)
--- NOTE | 2017-05-04 08:45 | CON.CARD ---
Consult Consult Specialty:: Cardiology - History of Present Illness History of Present Illness: The patient is an 87 year old male living at home with a home health aide, accompanied by daughter, with significant past medical history of urinary retention, BPH, Afib, hypertension, hyperlipidemia, dementia, and prostate ca ( currently undergoing treatment and is followed by his Oncologist Dr. Ivan Maier ), who presents to the ED with fever that began today. As per daughter, the patient was noted to have a fever of 101 this morning and has also been experiencing a cough for the past two weeks. Pt has not been eating or drinking much in the past few days and has been feeling very weak. Daughter states that it is has been difficult for the patient to ambulate on his own recently. - History Source History Provided By: Medical Record - Past Medical History Cardio/Vascular: Yes: AFIB, HTN Gastrointestinal: Yes: GERD - Alcohol/Substance Use Hx Alcohol Use: No - Smoking History Smoking history: Unknown if ever smoked Have you smoked in the past 12 months: No Aproximately how many cigarettes per day: 0 Home Medications - Allergies Allergies/Adverse Reactions: Allergies Allergy/AdvReac Type Severity Reaction Status Date / Time No Known Allergies Allergy Verified 05/04/17 01:32 - Home Medications Home Medications: Ambulatory Orders Apixaban [Eliquis] 2.5 mg PO DAILY 03/01/17 Rosuvastatin [Crestor -] 10 mg PO DAILY 03/01/17 Diltiazem Cd [Cardizem Cd -] 120 mg PO DAILY #30 cap 03/04/17 Glipizide [Glipizide ER] 2.5 mg PO DAILY #30 tab.er.24 03/04/17 Lisinopril [Prinivil] 2.5 mg PO DAILY #30 tablet 03/04/17 Metoprolol Succinate [Toprol XL -] 100 mg PO DAILY #30 tab 03/04/17 Review of Systems - Review of Systems Constitutional: reports: No Symptoms Eyes: reports: No Symptoms HENT: reports: No Symptoms Neck: reports: No Symptoms Cardiovascular: reports: No Symptoms Gastrointestinal: reports: No Symptoms Genitourinary: reports: No Symptoms Breasts: reports: No Symptoms Reported Musculoskeletal: reports: No Symptoms Integumentary: reports: No Symptoms Neurological: reports: No Symptoms Endocrine: reports: No Symptoms Hematology/Lymphatic: reports: No Symptoms Psychiatric: reports: No Symptoms Vital Signs: Vital Signs Temperature 97.4 F L 05/04/17 07:54 Pulse Rate 141 H 05/04/17 07:54 Respiratory Rate 18 05/04/17 07:54 Blood Pressure 120/79 05/04/17 07:54 O2 Sat by Pulse Oximetry (%) 100 05/04/17 04:21 Constitutional: Yes: Well Nourished, No Distress, Calm Eyes: Yes: WNL, Conjunctiva Clear, EOM Intact HENT: Yes: WNL, Atraumatic, Normocephalic Neck: Yes: WNL, Supple, Trachea Midline Respiratory: Yes: WNL, Regular, CTA Bilaterally Gastrointestinal: Yes: WNL, Normal Bowel Sounds Renal/: Yes: WNL Cardiovascular: Yes: WNL, Pulse Irregular Musculoskeletal: Yes: WNL Extremities: Yes: WNL Integumentary: Yes: WNL Neurological: Yes: WNL, Alert, Oriented ...Motor Strength: WNL Psychiatric: Yes: WNL, Alert, Oriented - Other Data Labs, Other Data: INR, PTT INR 1.59 (0.82-1.09) H D 05/03/17 23:20 Imaging - Results Chest X-ray: Image Reviewed (cm no i/e) EKG: Image Reviewed (af rep abn) Problem List - Problems (1) Atrial fibrillation with RVR Code(s): I48.91 - UNSPECIFIED ATRIAL FIBRILLATION (2) Sepsis Code(s): A41.9 - SEPSIS, UNSPECIFIED ORGANISM (3) Cardiomegaly Code(s): I51.7 - CARDIOMEGALY (4) Diabetes Code(s): E11.9 - TYPE 2 DIABETES MELLITUS WITHOUT COMPLICATIONS (5) HTN (hypertension) Code(s): I10 - ESSENTIAL (PRIMARY) HYPERTENSION (6) Hyperlipidemia Code(s): E78.5 - HYPERLIPIDEMIA, UNSPECIFIED (7) UTI (urinary tract infection) Code(s): N39.0 - URINARY TRACT INFECTION, SITE NOT SPECIFIED Assessment/Plan 87yo man with resolved a-fib with RVR in setting of ?CAP. P: Afib with RVR - resolved with Diltiazem 15mg IVP - continue Diltiazem 120mg daily - telemetry monitoring - Cardiology consult pending - continue home [place] - [id number] score-4 high risk for thrombolic event Leukocytosis - CXR pending - likely CAP given cough and fevers - trend WBC - trend fever curve Sepsis - Meets SIRS with RR, HR, Cr and WBC - Zosyn 3.375g q12h - Vanco renal dose - ID consult HTN - controlled - continue Lisinopril - continue Metoprolol - continue Diltiazem Prostate CA - monitor DM - hold oral hypoglycemics - FS qACHS - ISS
[2017-05-04] MEDS: LISINOPRIL 5 MG TABLET (FP) PO SCH ×2 (08:46→09:16)
[2017-05-04] MEDS: METOPROLOL SUCCINATE 100 MG TAB.SR.24H (FP) PO SCH ×2 (08:47→09:16)
--- NOTE | 2017-05-04 09:11 | PN ---
Progress Note, Physician Chief Complaint: ID Consult dictated According to his daughter not feeling well for 2 weeks NOEMI riojas Yesterday 100.7 - Current Medication List Current Medications: Active Medications Apixaban (Eliquis -) 2.5 mg PO DAILY [facility] Diltiazem HCl (Cardizem Cd -) 120 mg PO DAILY [facility] Last Admin: 05/04/17 08:47 Dose: 120 mg Glipizide (Glucotrol Xl -) 2.5 mg PO DAILY@0700 [facility] Last Admin: 05/04/17 08:41 Dose: 2.5 mg Lisinopril (Prinivil) 2.5 mg PO DAILY [facility] Last Admin: 05/04/17 08:46 Dose: 2.5 mg Metoprolol Succinate (Toprol Xl -) 100 mg PO DAILY [facility] Last Admin: 05/04/17 08:47 Dose: 100 mg Piperacillin Sod/Tazobactam Sod (Zosyn 3.375gm Ivpb (Pre-Docked)) 3.375 gm IVPB Q8H-IV [facility] PRN Reason: Protocol Rosuvastatin Calcium (Crestor -) 10 mg PO HS [facility] Vancomycin HCl (Vancomycin (Pre-Docked)) 1,000 mg IVPB DAILY [facility] PRN Reason: Protocol - Objective Vital Signs: Vital Signs Temperature 97.4 F L 05/04/17 07:54 Pulse Rate 141 H 05/04/17 07:54 Respiratory Rate 18 05/04/17 07:54 Blood Pressure 120/79 05/04/17 07:54 O2 Sat by Pulse Oximetry (%) 100 05/04/17 04:21 Constitutional: Yes: No Distress Cardiovascular: Yes: S1, S2 Respiratory: Yes: WNL, Regular, CTA Bilaterally Gastrointestinal: Yes: Soft. No: Tenderness, Epigastrium Labs: INR, PTT INR 1.59 (0.82-1.09) H D 05/03/17 23:20 Problem List - Problems (1) Prostate cancer Code(s): C61 - MALIGNANT NEOPLASM OF PROSTATE (2) Fever Code(s): R50.9 - FEVER, UNSPECIFIED Assessment/Plan Laboratory Tests 05/03/17 05/03/17 05/03/17 23:20 23:20 23:20 WBC 12.7 H D RBC 3.59 L Hct 30.5 L Plt Count 345 Creat Clearance w eGFR 33.86 Total Bilirubin 1.0 AST 52 H Urine RBC <1 Urine WBC 1 Assessment Recent febrile illness unclear etiology Has metastatic prostate CA Looks comfortable No couph appreciated and chest negative Plan IV Ceftriaxone for now pending c/s quick switch to po depending on c/s Anthony BYERS
--- NOTE | 2017-05-04 09:47 | CONS ---
INFECTIOUS DISEASE CONSULTATION DATE OF CONSULTATION: 05/04/2017 HISTORY OF PRESENT ILLNESS: This is an 87-year-old male brought from home with a history of according to his daughter that he had been feeling generalized weakness and exhibiting loss of appetite over the last 2 weeks. The patient has a history of metastatic prostate cancer and is followed by Dr. Ivan Maier. He is apparently undergoing treatment, although I do not know what chemotherapy he is on. He has a history of atrial fibrillation for which he is on Eliquis. Yesterday, his daughter took his temperature and noted that it was 100.7, prompting her to bring him here where he has not had any fever since admission. He was, however, noted to be tachycardic at a rate between 114 and 140, and he is currently on a telemetry unit. He is also noted to be tachypneic with a respiratory rate of 27 and an O2 saturation of 100% on 2 L nasal cannula. His white count was 12,000 on admission, and his urinalysis was benign. Chest x-ray showed no acute infiltrate. Currently, he appears alert. I do not notice any cough during my examination, and he does not appear to be in any respiratory distress. PAST MEDICAL HISTORY: Includes metastatic prostate cancer, hyperlipidemia, history of atrial fibrillation, hyperlipidemia. MEDICATIONS: Eliquis, Crestor, Cardizem, glipizide, Prinivil, Toprol. ALLERGIES: None known. SOCIAL HISTORY: Never smoked. Lives in the [facility]. Has a home health aide. No alcohol abuse. FAMILY HISTORY: Reviewed and noncontributory. REVIEW OF SYSTEMS: Respiratory: Recent cough noted, nonproductive. No hemoptysis. Cardiac: History of atrial fibrillation. No chest pain, palpitations, syncope. Gastrointestinal: No nausea, vomiting, diarrhea, abdominal pain. Positive loss of appetite. Genitourinary: No dysuria, hematuria, urinary frequency. PHYSICAL EXAMINATION: General: He was an alert male. No acute distress. Vital Signs: Temperature 97.4, pulse 140, blood pressure 120/80, respirations 18. He appeared in no acute distress. Neck: Supple. No adenopathy. Lungs: Clear to P&A. Diminished breath sounds. Heart: S1, S2. Irregularly irregular. Tachycardic. Abdomen: Soft, nontender. Positive bowel sounds. No organomegaly. Extremities: No clubbing, cyanosis, or edema. DIAGNOSTIC DATA: The white count is 12.7, hemoglobin 9.8, platelets of 345. Normal differential. INR 1.59. BUN 33, creatinine 1.9. Alkaline phosphatase 1273, AST 52. TNI less than 0.02. Urinalysis: RBC 1, WBC 1. Blood and urine cultures pending. Chest x-ray reviewed, shows no acute infiltrate. ASSESSMENT: An 87-year-old male with prostate cancer, recent loss of appetite, weakness, and cough noted at home. No obvious infiltrate noted here. Fever noted at home to 100.7, but none documented here. He currently appears in no acute distress albeit with a rapid heart rate with atrial fibrillation. Blood and urine cultures have been drawn. I do not think we need to be overly aggressive with regard to antibiotic therapy. Would empirically treat him with respiratory tract coverage with ceftriaxone 1 g IV daily, perhaps with prompt switch to oral therapy in the next 48 hours depending on clinical course as well as blood and urine culture results. This was discussed with his daughter. All questions were answered, and she was in agreement with the plan. JUAN BLACK M.D. [id number]
[2017-05-04] MEDS ORDERED: PIPERACILLIN/TAZOB 3.375 GM/50 ML PRE-DOCKED IVPB SCH (10:00)
[2017-05-04] MEDS ORDERED: HEPARIN NA (PORCINE) 5,000 UNITS/ML 1ML VIAL SQ SCH (10:00)
[2017-05-04] MEDS ORDERED: APIXABAN 2.5 MG TABLET PO SCH (10:00)
[2017-05-04] MEDS ORDERED: VANCOMYCIN 1 GRAM (PRE-DOCKED) 1,000 MG/250 ML BAG IVPB SCH (10:00)
[2017-05-04] MEDS ORDERED: DEXTROSE 5%-WATER - 50 ML IVPB ONE (10:04)
[2017-05-04] MEDS ORDERED: cefTRIAXone SODIUM 1 GM VIAL ONE (10:04)
[2017-05-04] MEDS: CEFTRIAXONE 1 GM in DEXTROSE 5%-WATER - 50 ML IVPB SCH (10:09)
--- NOTE | 2017-05-04 11:39 | PN ---
Progress Note (short form) - Note Progress Note: 87 y/o male admitted for possible pneumonia with leucocytosis. Patient alert and oriented to self only in NAD. Exam WNL no JVD, lung crackles, abdominal distention or peripheral edema noted. Eliquis dose not appropriate will adjust to 2.5mg bid. ID consult appreciated. Tachycardic additional medication for rate control. Problem List - Problems (1) Atrial fibrillation with RVR Code(s): I48.91 - UNSPECIFIED ATRIAL FIBRILLATION (2) Diabetes Code(s): E11.9 - TYPE 2 DIABETES MELLITUS WITHOUT COMPLICATIONS (3) Fever Code(s): R50.9 - FEVER, UNSPECIFIED Qualifiers: Encounter type: initial encounter (4) HTN (hypertension) Code(s): I10 - ESSENTIAL (PRIMARY) HYPERTENSION (5) Hyperlipidemia Code(s): E78.5 - HYPERLIPIDEMIA, UNSPECIFIED (6) Prostate cancer Code(s): C61 - MALIGNANT NEOPLASM OF PROSTATE Visit type - Emergency Visit Emergency Visit: Yes ED Registration Date: 05/04/17 Care time: The patient presented to the Emergency Department on the above date and was hospitalized for further evaluation of their emergent condition. - New Patient This patient is new to me today: Yes Date on this admission: 05/05/17 - Critical Care Critical Care patient: No - Discharge Referral Referred to [facility] Med P.C.: No
[2017-05-04 13:08] LABS: BASOPHIL 0.6 % (0-2.0); EOSINOPHIL 0.7 % (0-4.5); MCHC 31.5 g/dl (32.0-35.9); MEAN CELL VOLUME 85.6 fl (80-96); MEAN PLT VOLUME 7.4 fl (7.5-11.1); NEUTROPHILS 78.9 % (42.8-82.8); PLATELET COUNT 302 K/MM3 (134-434); RDW 18.2 % (11.9-15.9); WHITE BLOOD COUNT 10.5 K/mm3 (4.0-10.0)
[2017-05-04 13:37] LABS: ANION GAP 5 (8-16); CALCIUM 8.2 mg/dL (8.5-10.1); CO2 27 mmol/L (21-32); CREATININE 1.6 mg/dL (0.7-1.3); GLUCOSE,RANDOM 107 mg/dL (74-106)
[2017-05-04] MEDS: APIXABAN 2.5 MG TABLET PO SCH (21:40)
[2017-05-04] MEDS ORDERED: ROSUVASTATIN CA 10 MG TABLET (FP) PO SCH (22:00)
[2017-05-05] MEDS ORDERED: PT OWN MED DRAWER 7, Y5N ONE ×2 (06:40→08:38)
[2017-05-05] MEDS: glipiZIDE-XL 2.5 MG TAB.ER.24 PO SCH (06:45)
[2017-05-05 07:54] LABS: MCH 27.1 pg (25.7-33.7); MCHC 31.6 g/dl (32.0-35.9); MEAN CELL VOLUME 85.8 fl (80-96); PLATELET COUNT 287 K/MM3 (134-434); RDW 18.1 % (11.9-15.9); WHITE BLOOD COUNT 9.3 K/mm3 (4.0-10.0)
[2017-05-05 08:29] LABS: ANION GAP 10 (8-16); CALCIUM 7.9 mg/dL (8.5-10.1); CHOLESTEROL 86 mg/dL (50-200); CO2 21 mmol/L (21-32); CREATININE 1.4 mg/dL (0.7-1.3); GLUCOSE,RANDOM 84 mg/dL (74-106)
[2017-05-05] MEDS ORDERED: cefTRIAXone SODIUM 1 GM VIAL ONE (08:38)
[2017-05-05] MEDS ORDERED: DEXTROSE 5%-WATER - 50 ML IVPB ONE (08:40)
[2017-05-05] MEDS: LISINOPRIL 5 MG TABLET (FP) PO SCH ×2 (08:53→09:09)
[2017-05-05] MEDS: APIXABAN 2.5 MG TABLET PO SCH ×2 (08:54→09:09)
[2017-05-05] MEDS: METOPROLOL SUCCINATE 100 MG TAB.SR.24H (FP) PO SCH ×2 (08:54→09:09)
[2017-05-05] MEDS: CEFTRIAXONE 1 GM in DEXTROSE 5%-WATER - 50 ML IVPB SCH ×2 (08:55→09:09)
[2017-05-05 09:05] VITALS: BP 112/66; PULSE 151; TEMP 98
--- NOTE | 2017-05-05 09:30 | PN ---
Progress Note, Physician History of Present Illness: The patient is an 87 year old male living at home with a home health aide, accompanied by daughter, with significant past medical history of urinary retention, BPH, Afib, hypertension, hyperlipidemia, dementia, and prostate ca ( currently undergoing treatment and is followed by his Oncologist Dr. Ivan Maier ), who presents to the ED with fever that began today. As per daughter, the patient was noted to have a fever of 101 this morning and has also been experiencing a cough for the past two weeks. Pt has not been eating or drinking much in the past few days and has been feeling very weak. Daughter states that it is has been difficult for the patient to ambulate on his own recently. - Current Medication List Current Medications: Active Medications Apixaban (Eliquis -) 2.5 mg PO BID [facility] Last Admin: 05/05/17 09:09 Dose: Not Given Diltiazem HCl (Cardizem Cd -) 120 mg PO DAILY [facility] Last Admin: 05/05/17 09:08 Dose: Not Given Glipizide (Glucotrol Xl -) 2.5 mg PO DAILY@0700 [facility] Last Admin: 05/05/17 06:45 Dose: Not Given Ceftriaxone Sodium 1 gm/ (Dextrose) 50 mls @ 100 mls/hr IVPB DAILY [facility] Last Admin: 05/05/17 09:09 Dose: Not Given Lisinopril (Prinivil) 2.5 mg PO DAILY [facility] Last Admin: 05/05/17 09:09 Dose: Not Given Metoprolol Succinate (Toprol Xl -) 100 mg PO DAILY [facility] Last Admin: 05/05/17 09:09 Dose: Not Given Rosuvastatin Calcium (Crestor -) 10 mg PO HS [facility] Last Admin: 05/04/17 21:40 Dose: 10 mg - Objective Vital Signs: Vital Signs Temperature 98 F 05/05/17 08:30 Pulse Rate 151 H 05/05/17 08:30 Respiratory Rate 20 05/05/17 08:30 Blood Pressure 112/66 05/05/17 08:30 O2 Sat by Pulse Oximetry (%) 98 05/04/17 21:00 Eyes: Yes: WNL, Conjunctiva Clear, EOM Intact HENT: Yes: WNL, Atraumatic, Normocephalic Neck: Yes: WNL, Supple, Trachea Midline Cardiovascular: Yes: WNL, Regular Rate and Rhythm Respiratory: Yes: WNL, Regular, CTA Bilaterally Gastrointestinal: Yes: WNL, Normal Bowel Sounds Genitourinary: Yes: WNL Musculoskeletal: Yes: WNL Extremities: Yes: WNL Edema: No Integumentary: Yes: WNL Neurological: Yes: WNL, Alert, Oriented ...Motor Strength: WNL Psychiatric: Yes: WNL Labs: CBC, BMP 05/05/17 06:30 05/05/17 06:30 INR, PTT INR 1.59 (0.82-1.09) H D 05/03/17 23:20 Problem List - Problems (1) Atrial fibrillation with RVR Code(s): I48.91 - UNSPECIFIED ATRIAL FIBRILLATION (2) Sepsis Code(s): A41.9 - SEPSIS, UNSPECIFIED ORGANISM (3) Cardiomegaly Code(s): I51.7 - CARDIOMEGALY (4) Diabetes Code(s): E11.9 - TYPE 2 DIABETES MELLITUS WITHOUT COMPLICATIONS (5) HTN (hypertension) Code(s): I10 - ESSENTIAL (PRIMARY) HYPERTENSION (6) Hyperlipidemia Code(s): E78.5 - HYPERLIPIDEMIA, UNSPECIFIED (7) UTI (urinary tract infection) Code(s): N39.0 - URINARY TRACT INFECTION, SITE NOT SPECIFIED Assessment/Plan 87yo man with resolved a-fib with RVR in setting of ?CAP. P: Afib with RVR - - increase Diltiazem 240 mg daily - telemetry monitoring - Cardiology consult pending - continue home Eliquis - [id number] score-4 high risk for thrombolic event Leukocytosis - CXR pending - likely CAP given cough and fevers - trend WBC - trend fever curve Sepsis - Meets SIRS with RR, HR, Cr and WBC - Zosyn 3.375g q12h - Vanco renal dose - ID consult HTN - controlled - continue Lisinopril - continue Metoprolol - continue Diltiazem Prostate CA - monitor DM - hold oral hypoglycemics - FS qACHS - ISS
[2017-05-05] MEDS ORDERED: ALBUTEROL SO4 2.5/IPRATROPIUM 0.5 INH SOL 3 ML VIAL.NEB. NEB ONE (10:09)
--- NOTE | 2017-05-05 10:11 | DS ---
Physical Exam: SUBJECTIVE: Patient seen and examined and resting comfortably in bed. OBJECTIVE: Vital Signs Period Temp Pulse Resp BP Sys/Ralph Pulse Ox Last 24 Hr 97.9 F-98.9 F 110-151 18-20 94-136/57-79 98 PHYSICAL EXAM GENERAL: The patient is awake, alert, and fully oriented, in no acute distress. HEAD: Normal with no signs of trauma.3 nodular ( osteoma?) lesion on frontal area. EYES: PERRL, extraocular movements intact, sclera anicteric, conjunctiva clear. ENT: Ears normal, nares patent, oropharynx clear without exudates, moist mucous membranes. NECK: Trachea midline, full range of motion, supple. LUNGS: Breath sounds equal, clear to auscultation bilaterally, expiratory wheeze , no crackles, no accessory muscle use. HEART: Tachycardic, S1, S2 without murmur, rub or gallop. ABDOMEN: Soft, nontender, nondistended, normoactive bowel sounds, no guarding, no rebound, no hepatosplenomegaly, no masses. EXTREMITIES: 2+ pulses, warm, well-perfused, no edema. NEUROLOGICAL: Cranial nerves II through XII grossly intact. Normal speech, gait not observed. PSYCH: Normal mood, normal affect. SKIN: Warm, dry, normal turgor, no rashes or lesions noted. LABS Laboratory Results - last 24 hr 05/04/17 05/04/17 05/05/17 12:55 12:55 06:30 WBC 10.5 H 9.3 RBC 3.42 L 3.30 L Hgb 9.2 L 9.0 L Hct 29.3 L 28.3 L MCV 85.6 85.8 MCH 27.0 27.1 MCHC 31.5 L 31.6 L RDW 18.2 H 18.1 H Plt Count 302 287 MPV 7.4 L D 8.0 Neutrophils % 78.9 Lymphocytes % 10.4 D Monocytes % 9.4 Eosinophils % 0.7 D Basophils % 0.6 Sodium 139 Potassium 4.9 Chloride 107 Carbon Dioxide 27 D Anion Gap 5 L BUN 24 H D Creatinine 1.6 H POC Glucometer Random Glucose 107 H Calcium 8.2 L Cholesterol 05/05/17 05/05/17 06:30 06:44 WBC RBC Hgb Hct MCV MCH MCHC RDW Plt Count MPV Neutrophils % Lymphocytes % Monocytes % Eosinophils % Basophils % Sodium 137 Potassium 4.7 Chloride 106 Carbon Dioxide 21 D Anion Gap 10 BUN 21 H Creatinine 1.4 H POC Glucometer 89 Random Glucose 84 D Calcium 7.9 L Cholesterol 86 HOSPITAL COURSE: Admitted with suspected CAP as the source of fever, ABx given and patient given IVF and noted to still have HR uncontrolled, cardiology consult called and Cardizem increased to 240mg. Blood cultures were negative and patient's WBC count trended to normal. Patient had GODFREY which is resolving, continue hydration at home. Date of Admission:05/04/17 Date of Discharge: 05/05/17 Minutes to complete discharge: 40 Discharge Summary Reason For Visit: SEPSIS AFIB WITH RVR Current Active Problems Atrial fibrillation with RVR (Acute) Fever (Acute) Prostate cancer (Acute) Sepsis (Acute) Condition: Fair - Instructions Referrals: Petra Quinteros MD [Staff Physician] - Gabino Brooks MD [Staff Physician] - Disposition: HOME - Home Medications Comprehensive Discharge Medication List: Ambulatory Orders Apixaban [Eliquis] 2.5 mg PO DAILY 03/01/17 Rosuvastatin [Crestor -] 10 mg PO DAILY 03/01/17 Diltiazem Cd [Cardizem Cd -] 240 mg PO DAILY #30 cap 03/04/17 Glipizide [Glipizide ER] 2.5 mg PO DAILY #30 tab.er.24 03/04/17 Lisinopril [Prinivil] 2.5 mg PO DAILY #30 tablet 03/04/17 Metoprolol Succinate [Toprol XL -] 100 mg PO DAILY #30 tab 03/04/17 Problem List - Problems (1) Atrial fibrillation with RVR Code(s): I48.91 - UNSPECIFIED ATRIAL FIBRILLATION (2) Fever Code(s): R50.9 - FEVER, UNSPECIFIED Qualifiers: Encounter type: initial encounter (3) Prostate cancer Code(s): C61 - MALIGNANT NEOPLASM OF PROSTATE (4) Diabetes Code(s): E11.9 - TYPE 2 DIABETES MELLITUS WITHOUT COMPLICATIONS (5) HTN (hypertension) Code(s): I10 - ESSENTIAL (PRIMARY) HYPERTENSION This patient is new to me today: Yes Date on this admission: 05/05/17 Emergency Visit: Yes ED Registration Date: 05/04/17 Care time: The patient presented to the Emergency Department on the above date and was hospitalized for further evaluation of their emergent condition. Critical Care patient: No - Discharge Referral Referred to [facility] Med P.C.: No
--- NOTE | 2017-05-05 21:22 | EKG ---
Test Reason : Blood Pressure : / mmHG Vent. Rate : 131 BPM Atrial Rate : 133 BPM P-R Int : 000 ms QRS Dur : 074 ms QT Int : 292 ms P-R-T Axes : 000 018 -20 degrees QTc Int : 431 ms POOR DATA QUALITY, INTERPRETATION MAY BE ADVERSELY AFFECTED ATRIAL FIBRILLATION WITH RAPID VENTRICULAR RESPONSE NONSPECIFIC T WAVE ABNORMALITY ABNORMAL ECG WHEN COMPARED WITH ECG OF 03-MAR-2017 10:26, NONSPECIFIC T WAVE ABNORMALITY LESS EVIDENT Confirmed by ЕКАТЕРИНА JORDAN MD ([id number]) on 05/05/2017 9:22:19 PM Referred By: Confirmed By:ЕКАТЕРИНА JORDAN MD
== END 2017-05-05 11:30 | disposition home or self-care (01) | DRG 872 ==
LOC: JER 22:37 → JERBED 05-04 01:59 → UNDOADMIN 05-04 02:12 → J4W 05-04 05:50
PROVIDERS: ADMIT Internal Medicine; ATTEND Internal Medicine
DX: A41.9 Sepsis, unspecified organism (principal); N39.0 Urinary tract infection, site not specified; N17.9 Acute kidney failure, unspecified; N40.1 Benign prostatic hyperplasia with lower urinary tract symptoms; R33.8 Other retention of urine; E78.5 Hyperlipidemia, unspecified; I48.91 Unspecified atrial fibrillation; F03.90 Unspecified dementia, unspecified severity, without behavioral disturbance, psychotic disturbance, mood disturbance, and anxiety; C61 Malignant neoplasm of prostate; I11.0 Hypertensive heart disease with heart failure; I50.9 Heart failure, unspecified; E11.9 Type 2 diabetes mellitus without complications; Z79.84 Long term (current) use of oral hypoglycemic drugs; I51.7 Cardiomegaly
CPT/HCPCS: 36415; 71010-TC; 80048; 80053; 80162; 81003; 81015; 82465; 82803; 83605; 83880; 84484; 85025; 85027; 85610; 85730; 87040; 87086; 93005; 93010; 94640; 99285-25

== ENCOUNTER 2017-05-09 18:18 | Emergency (ER) | payer OTHER ==
[2017-05-09 18:36] VITALS: BP 111/64; PULSE 122; TEMP 98.2; BMI 24.0
[2017-05-09] MEDS ORDERED: SODIUM CHLORIDE 500 ML IV STA (19:54)
[2017-05-09 20:37] LABS: MCH 27.3 pg (25.7-33.7); MCHC 31.9 g/dl (32.0-35.9); MEAN CELL VOLUME 85.6 fl (80-96); PLATELET COUNT 323 K/MM3 (134-434); RDW 18.8 % (11.9-15.9)
--- NOTE | 2017-05-09 21:02 | PDOC ---
History of Present Illness - General Chief Complaint: Pain Stated Complaint: ABDOMINAL PAIN Time Seen by Provider: 05/09/17 19:22 History Source: Family Exam Limitations: Clinical Condition - History of Present Illness Travel History: No Initial Comments: 05/09/17 20:55 87yo Male patient w/ PmHx: HTN, HLD, Prostate Ca w/ mets to bone, urinary retention, BPH, Dementia presents to ED via EMS accompanied by daughter. Daughter states patient lives at home with her and has home health aides to assist with cares. Daughter states home health aids states patient felt warm and was c/o lower abdominal pain. Daughter states if she was home, she would have not sent him in. She states he suffers from Gas and his feeling of being warm is do to heat in household. She denies n/v/d, fever, CP, back pain, constipation, diff breathing, or any other complaints at this time. Dr. Ivan Grubbs (Oncology) Dr. Cuba (PCP) Timing/Duration: reports: changing over time Quality: reports: moderate Abdominal Pain Onset Location: reports: other (Lower Abdomen.) Pain Radiation: reports: no radiation Activities at Onset: reports: none Treatment Prior to Arrive: worse with: analgesics, antacids, cold pack, heat, laxative, enema, other Aggravating Factors: worse with: None, Defecation, Eating, Emotional upset, Exertion, [place], Movement, Voiding, Change in position Alleviating Factors: worse with: None, Belching, Shallow Breathing, Defecation, Eating, Holding Breath, Passing Gas, Change in Position, Rest, Voiding, Vomiting Past History - Travel Traveled outside of the country in the last 30 days: No Close contact w/someone who was outside of country & ill: No - Past Medical History Allergies/Adverse Reactions: Allergies Allergy/AdvReac Type Severity Reaction Status Date / Time No Known Allergies Allergy Verified 05/09/17 18:23 Home Medications: Ambulatory Orders Apixaban [Eliquis] 2.5 mg PO DAILY 03/01/17 Rosuvastatin [Crestor -] 10 mg PO DAILY 03/01/17 Diltiazem Cd [Cardizem Cd -] 120 mg PO DAILY #30 cap 03/04/17 Glipizide [Glipizide ER] 2.5 mg PO DAILY #30 tab.er.24 03/04/17 Lisinopril [Prinivil] 2.5 mg PO DAILY #30 tablet 03/04/17 Metoprolol Succinate [Toprol XL -] 100 mg PO DAILY #30 tab 03/04/17 Diltiazem HCl [Diltiazem ER] 240 mg PO DAILY #60 capsule.er 05/05/17 Magnesium Citrate [Citroma -] 300 ml PO ONCE PRN #2 bottle 05/09/17 Cancer: Yes (prostate ca) Cardiac Disorders: Yes (atrial fibrillation) Dementia: Yes Diabetes: Yes HTN: Yes Hypercholesterolemia: Yes - Surgical History Neurologic Surgery: Yes - Psycho/Social/Smoking Cessation Hx Anxiety: No Suicidal Ideation: No Smoking Status: No Smoking History: Never smoked Have you smoked in the past 12 months: No Number of Cigarettes Smoked Daily: 0 Information on smoking cessation initiated: No Hx Alcohol Use: No Drug/Substance Use Hx: No Substance Use Type: None Hx Substance Use Treatment: No Abd/GI Specific PMHX - Complaint Specific PMHX Colitis: No Diverticulitis: No Gall Bladder Disease: No GERD: No Hepatitis: No Irritable Bowel Synd (IBS): No Pancreatitis: No GI Ulcer Disease: No Review of Systems - Review of Systems Able to Perform ROS?: Yes Is the patient limited Vincentian proficient: No *Physical Exam - Vital Signs Last Vital Signs Temp Pulse Resp BP Pulse Ox 98.2 F 122 H 18 111/64 99 05/09/17 18:27 05/09/17 18:27 05/09/17 18:27 05/09/17 18:27 05/09/17 18:27 ED Treatment Course - LABORATORY CBC & Chemistry Diagram: 05/09/17 20:18 05/09/17 20:20 - ADDITIONAL ORDERS Additional order review: 05/09/17 20:18 RBC 3.39 L MCV 85.6 MCHC 31.9 L RDW 18.8 H MPV 8.0 Neutrophils % Y Lymphocytes % Y - RADIOLOGY Radiology Studies Ordered: Category Date Time Status ABDOMEN & PELVIS CT W/O CONTR [CT] Stat CT Scan 05/09/17 19:54 Ordered - Medications Given in the ED: ED Medications Discontinued Medications Generic Name Dose Route Start Last Admin Trade Name Freq PRN Reason Stop Dose Admin Sodium Chloride 500 mls @ 500 mls/hr 05/09/17 19:54 05/09/17 20:18 Normal Saline - IV 05/09/17 20:53 500 mls/hr ASDIR STA Administration Medical Decision Making - Medical Decision Making 05/09/17 22:55 Chemistry hemolyzed. Family made aware. Daughter states Dr. Cuba will be making house call tomorrow and is deferring Cmp at this time. Patient also has appointment with Oncology May 4 which they do blood work. Daughter is fine taking him home without these results. *DC/Admit/Observation/Transfer Diagnosis at time of Disposition: Constipation Qualifiers: Constipation type: slow transit constipation Qualified Code(s): K59.01 - Slow transit constipation - Discharge Dispostion Disposition: HOME Condition at time of disposition: Stable Admit: No - Prescriptions Prescriptions: Magnesium Citrate [Citroma -] 300 ml PO ONCE PRN #2 bottle PRN Reason: Constipation - Patient Instructions Printed Discharge Instructions: DI for Constipation, Increased Dietary Fiber May Improve Constipation Conditions With Pelvic Eleazar Additional Instructions: Follow up with Dr. Cuba tomorrow. Cmp was unable to be resulted today and Dr. Cuba can have this drawn at home. Return if symptoms worsen or any concerns for further evaluation. Try warm prune juice or Milk of Magnesium. Print Language: MOHAWK
[2017-05-09 21:19] LABS: PLATELET ESTIMATE ADEQUATE (NORMAL); TOTAL CELLS COUNTED 100
[2017-05-09 21:20] LABS: MYELOCYTE 1 % (0-2); REACTIVE LYMPHOCYTES 1 % (0-80)
--- NOTE | 2017-05-09 21:36 | PDOC ---
*Physical Exam - Vital Signs Last Vital Signs Temp Pulse Resp BP Pulse Ox 98.2 F 122 H 18 111/64 99 05/09/17 18:27 05/09/17 18:27 05/09/17 18:27 05/09/17 18:27 05/09/17 18:27 ED Treatment Course - LABORATORY CBC & Chemistry Diagram: 05/09/17 20:18 05/09/17 20:20 - ADDITIONAL ORDERS Additional order review: Laboratory Results 05/09/17 20:20 Sodium Cancelled Potassium Cancelled Chloride Cancelled Carbon Dioxide Cancelled Anion Gap Cancelled BUN Cancelled Creatinine Cancelled Creat Clearance w eGFR Cancelled Random Glucose Cancelled Calcium Cancelled Total Bilirubin Cancelled AST Cancelled ALT Cancelled Alkaline Phosphatase Cancelled Creatine Kinase Cancelled Troponin I Cancelled Total Protein Cancelled Albumin Cancelled Total Amylase Cancelled Lipase Cancelled 05/09/17 20:18 RBC 3.39 L MCV 85.6 MCHC 31.9 L RDW 18.8 H MPV 8.0 Neutrophils % Y Lymphocytes % Y - Medications Given in the ED: ED Medications Discontinued Medications Generic Name Dose Route Start Last Admin Trade Name Freq PRN Reason Stop Dose Admin Sodium Chloride 500 mls @ 500 mls/hr 05/09/17 19:54 05/09/17 20:18 Normal Saline - IV 05/09/17 20:53 500 mls/hr ASDIR STA Administration Medical Decision Making - Medical Decision Making 05/09/17 21:36 agree with care from JEEVAN Levin
== END 2017-05-09 23:13 | disposition home or self-care (01) ==
LOC: JER 18:18
PROC: 3E0337Z Introduction of Electrolytic and Water Balance Substance into Peripheral Vein, Percutaneous Approach (ICD-10-PCS; principal; 2017-05-09)
DX: K59.01 Slow transit constipation (principal); I10 Essential (primary) hypertension; E11.9 Type 2 diabetes mellitus without complications; E78.00 Pure hypercholesterolemia, unspecified; Z85.46 Personal history of malignant neoplasm of prostate
CPT/HCPCS: 36415; 74176-TC; 85025; 99282-25